=== PATIENT | female | born 1935 | race Caucasian/White ===

== ENCOUNTER 2023-10-26 02:22 | Inpatient (IN) | payer MEDICARE, BC, SELFPAY ==
[2023-10-25 21:33] VITALS: BP 98/58; BMI 18.9
[2023-10-25 21:38] VITALS: BP 98/58
[2023-10-25 22:09] LABS: % Basophils 0.3 % (0-2); % Immature Granulocytes 2.2 % (0-0.5); % Lymphocytes 6.9 % (20.5-51.1); % Monocytes 3.3 % (1.7-9.3); % Neutrophils 87.3 % (42.2-75.2); Absolute Basophils 0.1 10^3/uL (0-0.2); Absolute Immature Granulocytes 0.5 10^3/uL (0-0.05); Absolute Lymphocytes 1.4 10^3/uL (1.2-3.4); Absolute Monocytes 0.7 10^3/uL (0.1-0.6); Hematocrit 31.9 % (37.0-47.0); Hemoglobin 11.1 g/dL (12.0-16.0); Mean Corp Hgb Conc. 34.8 g/dL (33.0-37.0); Mean Corpuscular Hgb 35.1 pg (27.0-31.0); Mean Corpuscular Volume 100.9 fL (81.0-99.0); Mean Platelet Volume 8.4 fL (7.4-10.4); Nucleated Red Blood Cells % 0.4 %; Platelet Count 343 10^3/uL (130-400); Red Blood Cell Count 3.16 10^6/uL (4.20-5.40); Red Cell Dist. Width 16.7 % (11.5-14.5); White Blood Cell Count 20.7 10^3/uL (4.8-10.8)
[2023-10-25 22:11] LABS: Urine Albumin Trace (Neg - Trace); Urine Bilirubin Negative (Negative); Urine Character Slightly Cloudy (Clear); Urine Color Yellow; Urine Glucose Negative (Negative); Urine Ketone Negative (Negative); Urine Leukocyte 2+ (Negative); Urine Nitrite Negative (Negative); Urine Occult Blood Negative (Negative); Urine Specific Gravity 1.015 (<1.030); Urine Urobilinogen Negative (Neg - 1+)
[2023-10-25 22:22] LABS: ALT (SGPT) 22 U/L (0-35); AST (SGOT) 20 U/L (14-36); Albumin 3.1 g/dl (3.5-5.0); Alkaline Phosphatase 85 U/L (38-126); Blood Urea Nitrogen 33 mg/dl (7-17); Calcium 9.1 mg/dl (8.4-10.2); Carbon Dioxide 22 mmol/L (22-30); Chloride 103 mmol/L (98-107); Estimated Creatinine Clearance 35 ml/min; Glucose 118 mg/dl (70-99); Potassium 3.5 mmol/L (3.5-5.1); Sodium 135 mmol/L (135-145); Total Bilirubin 0.9 mg/dl (0.2-1.3); Total Protein 5.5 g/dl (6.3-8.2); eGFR > 60.00
[2023-10-25 22:24] LABS: Urine Bacteria Few (Negative); Urine Red Blood Cell 0-2 /HPF (0-2); Urine White Cell >100 /HPF (0-5); Urine Yeast Many (Negative)
[2023-10-25 22:28] LABS: NT-proBNP 2030 pg/ml; Troponin I 0.016 ng/ml
[2023-10-25 23:00] VITALS: BP 81/52
[2023-10-25 23:05] LABS: COVID-19 Antigen Negative (Negative)
--- NOTE | 2023-10-25 23:12 | ED.GENMED ---
History of Present Illness
General
Chief Complaint: Change Level of Consciousness
Source: family
Exam Limitations: clinical condition
Time Seen by Provider: 10/25/23 21:45
Travel History
Have you had any contact with someone who has COVID-19?: Unable to Answer
Do you have any symptoms of coronavirus? Fever > 100 degrees, chills, cough, shortness of breath, sore throat, loss of taste or smell, muscle aches, or headache?: Unable to Answer
History of Present Illness
History of Present Illness:
87-year-old female change in mental status probably started in the last 24 hours. Patient's daughter was there at 4 PM and noticed a significant change essentially unresponsive. Was brought to the ER this evening for same. Patient was doing well
yesterday. Recent discharge from [facility] for sepsis. Cause unknown per the family
Past History
Past History
ED Past Medical History: Arrthythmia, HTN, Hypothyroidism, Other (Sepsis), Other (Dementia) and Other (Chronic kidney disease)
Phy Exam
Physical Exam
Physical Exam:
GENERAL: Lethargic, eyes closed, only responds to painful stimuli and occasionally to voice.
EYE: Orbits normal.
NECK: Supple
ENT: Mucous membranes dry
CARDIAC: Regular rate and rhythm without any obvious murmurs. Good pulses to the left foot
LUNGS: Clear breath sounds,normal
ABDOMEN: Soft, some mid abdominal tenderness. No rebound or guarding no mass or hernia
NEUROLOGICAL: Lethargic. Grossly nonfocal.
SKIN: Warm and dry, coolness to the left foot with some color changes to the distal medial left foot. Eschar to the left first toe
MUSCULOSKELETAL: Bilateral edema. Dressings to both lower extremities
PSYCH: Lethargic no eye contact
Course
Orders/Labs/Results
Orders:
Orders
10/25/23 21:41
Electrocardiogram (*1) Urgent
Reason for Study: Fatigue / Weakness
10/25/23 21:42
EKG- Treatment ONCE
10/25/23 21:44
Straight cath- Treatment ONCE
Straight Cath As Directed
Frequency: One time now
10/25/23 21:52
Portable Chest Xray [CR Chest Portable - 1 View] Urgent
Comment:
Reason For Exam: change in LOC
Reason Study Needs to be Portable: Patient Unstable
10/25/23 21:57
IV Insert/Care/Rem.- Treatment PRN
10/25/23 21:59
CMP [Comprehensive Metabolic Panel] Urgent
Complete Blood Count/With Diff Urgent
Pro-BNP [NT-proBNP] Urgent
Troponin I Urgent
Urinalysis Reflex To Culture Urgent
Date Specimen was Collected: 10/25/23
Time Specimen was Collected: 21:43
Urine Microscopic Reflex Cult Urgent
Urine Culture Urgent
NATALIE Source: U
Specimen Description:
Date Specimen was Collected: 10/25/23
Time Specimen was Collected: 21:43
10/25/23 22:41
COVID-19 Antigen Urgent
Source: Nasal Swab
Lactic Acid Q4H
Comment: CANCEL 2nd LACTIC ACID IF 1st LACTIC ACID IS LESS THAN 2
Blood Culture Q30M
NATALIE Source: Blood/Venous
Specimen Description:
Influenza A+B Rapid Molecular Urgent
NATALIE Source: Nasal Swab
Specimen Description:
0.9% Sodium Chloride 1000 ml [Nss] 1,000 ml IV BOLUS
Aztreonam [Azactam] 2,000 mg IV NOW STA
10/25/23 23:11
Sterile Water [Sterile Water For Injection] 10 ml .ROUTE .ST-MED ONE
10/25/23 23:25
Blood Culture Routine
NATALIE Source: B
Specimen Description:
10/26/23 00:10
CT Head W/o Iv Contrast Urgent
Reason For Exam: change in LOC
10/26/23 00:20
CT Abd/pel Without Iv Or Oral Urgent
Reason For Exam: abd pain. sepsis
10/26/23 00:26
0.9% Sodium Chloride 1000 ml [Nss] 1,000 ml IV BOLUS
10/26/23 00:59
MetroNIDAZOLE 500 MG/100 ML [Flagyl 500 mg] 100 ml IV NOW
10/26/23 02:00
Lactic Acid Q4H
Comment: CANCEL 2nd LACTIC ACID IF 1st LACTIC ACID IS LESS THAN 2
Abnormal Lab Results
10/25/23
21:59
WBC 20.7 H 10^3/uL
(4.8-10.8)
RBC 3.16 L 10^6/uL
(4.20-5.40)
Hgb 11.1 L g/dL
(12.0-16.0)
Hct 31.9 L %
(37.0-47.0)
MCV 100.9 H fL
(81.0-99.0)
MCH 35.1 H pg
(27.0-31.0)
RDW 16.7 H %
(11.5-14.5)
Abs Immat Gran (auto) 0.5 H 10^3/uL
(0-0.05)
Absolute Neuts (auto) 18.0 H 10^3/uL
(1.4-6.5)
Absolute Monos (auto) 0.7 H 10^3/uL
(0.1-0.6)
Immature Gran % 2.2 H %
(0-0.5)
Neutrophils % 87.3 H %
(42.2-75.2)
Lymphocytes % 6.9 L %
(20.5-51.1)
BUN 33 H mg/dl
(7-17)
Glucose 118 H mg/dl
(70-99)
Total Protein 5.5 L g/dl
(6.3-8.2)
Albumin 3.1 L g/dl
(3.5-5.0)
Leukocyte Esterase Rfl 2+ A
(Negative)
Urine WBC (Reflex) >100 A /HPF
(0-5)
Urine Bacteria (Reflex) Few A
(Negative)
Urine Yeast Many A
(Negative)
10/25/23 21:59
10/25/23 21:59
Vital Signs
Initial and Last Documented VS:
Initial Vital Signs
Temp Pulse Resp BP Pulse Ox
100.4 F H 98 18 98/58 97
10/25/23 21:33 10/25/23 21:33 10/25/23 21:33 10/25/23 21:33 10/25/23 21:33
Last Documented Vital Signs
Temp Pulse Resp BP Pulse Ox
100.4 F H 71 16 117/57 95
10/25/23 21:33 10/26/23 01:00 10/26/23 01:00 10/26/23 01:00 10/26/23 01:00
MDM/Problems Addressed
Differential Diagnosis Includes:
Significant change in mental status over 24 to 36 hours. Likely septic. Patient also may have an ischemic left foot but this does not appear new. She does have great dorsalis pedis pulse on the side however. 20,000 white count positive urine.
Antibiotics ordered. Awaiting CT scan. Try to get records from [facility] family updated multiple times. Patient is DNR/DNI.
*Radiology
Radiology exam reviewed: radiology read reviewed (No acute findings on head CT calcified meningioma. Stercoral colitis. 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
*EKG
Interpreted by ED Provider?: Yes
Interpretation: abnormal
Comparison EKG: no comparison EKG present
Heart Rate: 88
Rate: normal
Rhythm: sinus
[place]: normal axis
Interval: normal interval
QRS Pattern: left vent hypertrophy
Ischemia: non-specific ST changes
*[facility] Manager Interpretation
Rate: normal
Interpretation: normal
Heart Rate: 90
Rhythm: sinus
*Critical Care Note
Total Time (30-74mins, 75-104mins- exclusive of procedures): Not Applicable
Update Note
Update Note:
Improve mental status with fluids. Stercoral colitis/UTI. Attempting to still get records from [facility].
ED Attending Note
-
Portions of this chart may have been created with voice recognition software.� Occasional wrong word or��sound alike� substitutions may have occurred due to the inherent limitations of voice recognition software.
Discharge Plan
Departure
Patient Disposition: Admit
Date of Disposition: 10/26/23
Time of Disposition: 01:02
Presentation/result/management discussed w/ accepting MD/DO: Hospitalist
Discharge Problem:
Early sepsis, Stercoral colitis, UTI
Prescriptions:
No Action
hydroxyurea 500 mg Capsule
500 mg PO MOWEFR
lisinopril 20 mg Tablet
20 mg PO DAILY
famotidine 40 mg Tablet
80 mg PO DAILY
diltiazem HCl 240 mg Capsule,Extended Release 24 Hr
240 mg PO DAILY
hydralazine 25 mg Tablet
25 mg PO TID
acetaminophen 650 mg Tablet
650 mg PO Q6H PRN (Reason: general discomfort)
bisacodyl 10 mg Suppository
10 mg [place] DAILY PRN (Reason: constipation)
white petrolatum Ointment
1 applic TOPICAL Q6HPRN PRN (Reason: dry skin)
furosemide [Lasix] 20 mg Tablet
20 mg PO DAILY
gabapentin 100 mg Capsule
100 mg PO BID
ergocalciferol (vitamin D2) 1,250 mcg (50,000 unit) Capsule
1,250 mcg PO WE
budesonide 3 mg Capsule,Delayed,Extend.Release
3 mg PO TID
Eliquis 2.5 mg Tablet
2.5 mg PO BID
carboxymethylcellulose sodium 1 % Drops
1 drp BOTH EYES Q6HPRN PRN (Reason: dry eyes)
Referrals:
Chuck Dasilva MD [Family Provider] -
Interventions
Interventions:
*General Assessment Last Done: 10/25/23 21:33
*Neglect/Abuse Screening Last Done: 10/25/23 21:48
ED- Fall Risk Assessment Last Done: 10/25/23 21:33
*ED COVID-19 Vaccine History Last Done: 10/25/23 21:33
ED- Cardiac Assessment Last Done: 10/25/23 23:22
ED- Neurological Assessment Last Done: 10/25/23 23:22
ED-Psychological Assessment Last Done: 10/25/23 23:22
ED- Pulmonary Assessment Last Done: 10/25/23 23:22
Discharge Date and Time
Print Language: INDIAN
[2023-10-25] MEDS: NSS 1000 IV (23:14)
[2023-10-25] MEDS: AZACTAM 2000 MG IV (23:15)
[2023-10-25 23:26] VITALS: BP 125/60
[2023-10-25 23:40] VITALS: BP 129/69
[2023-10-26] VITALS (15 sets, daily range): BP systolic 92–147; BP diastolic 48–88; PULSE 70–71; O2SAT 96–100; BMI 18.9
[2023-10-26] MEDS: NSS 1000 IV (00:37)
[2023-10-26] MEDS: FLAGYL 500 MG 100 IV ×3 (01:11→17:17)
--- NOTE | 2023-10-26 02:14 | HPS.HSE ---
Family Physician
-
Family Physician: Chuck Dasilva
Chief Complaint
-
Altered Mental Status
History of Present Illness
Patient is an 87y F with PMH significant for A-Fib, lymphocytic colitis and hypertension who presents to ED from local SNF for evaluation of mental status change. Patient was reportedly found to be poorly responsive at the [facility] this evening. Per
report, she had been 'normal' yesterday. In the ED, patient is sleeping and responds minimally. She does nod her head to some questions and follows simple commands, but does not open her eyes or engage in spoken conversation. Additional history /
ROS from the patient is difficult.
Patient was recently hospitalized at [facility] for sepsis. Her symptoms sound as if they were quite similar at that time. Her final diagnosis was sepsis with no apparent origin / cause.
Medical History
Past Medical History
Past Medical History: Reports Other
Additional Past Medical History:
Paroxysmal Atrial Fibrillation
Hypertension
CHF - Unknown Type
Lymphocytic Colitis
GERD
Hypothyroidism
Peripheral Neuropathy
Past Surgical History: Reports Other
Additional Past Surgical History:
Unknown
Social History
Unable to obtain full social history at this time due to: Patient Non-verbal
Family History
Family History: Unable to Obtain
Allergies / Home Medications
Allergies reflects when Allergies were last updated in [facility].
Home Medications with original date entered in [facility]
Allergy/Medication List:
Allergies
Allergy/AdvReac Type Severity Reaction Status Date / Time
Iodinated Contrast Media Allergy Unknown Verified 10/25/23 21:31
Penicillins Allergy Unknown Verified 10/25/23 21:31
Home Medications
acetaminophen 650 mg tablet 650 mg PO Q6H PRN general discomfort 10/25/23
apixaban 2.5 mg tablet (Eliquis) 2.5 mg PO BID 10/25/23
bisacodyl 10 mg rectal suppository 10 mg [place] DAILY PRN constipation 10/25/23
budesonide 3 mg capsule,delayed,extended release 3 mg PO TID 10/25/23
carboxymethylcellulose sodium 1 % eye drops 1 drp BOTH EYES Q6HPRN PRN dry eyes 10/25/23
diltiazem HCl 240 mg capsule,24 hr,extended release 240 mg PO DAILY 10/25/23
ergocalciferol (vitamin D2) 1,250 mcg (50,000 unit) capsule 1,250 mcg PO WE 10/25/23
famotidine 40 mg tablet 80 mg PO DAILY 10/25/23
furosemide 20 mg tablet (Lasix) 20 mg PO DAILY 10/25/23
gabapentin 100 mg capsule 100 mg PO BID 10/25/23
hydralazine 25 mg tablet 25 mg PO TID 10/25/23
hydroxyurea 500 mg capsule 500 mg PO MOWEFR 10/25/23
lisinopril 20 mg tablet 20 mg PO DAILY 10/25/23
white petrolatum 1 applic topical Q6HPRN PRN dry skin 10/25/23
Review of Systems
-
Unable to obtain full review of systems at this time due to: Patient Non-verbal
Physical Exam
Vital Signs
Vital Signs
Temp Pulse Resp BP Pulse Ox
100.4 F H 79 19 113/82 94
10/25/23 21:33 10/26/23 02:00 10/26/23 02:00 10/26/23 02:00 10/26/23 02:00
Physical Exam
General: Other (87y F does not appear in acute distress. Somewhat pale appearing.)
HEENT: Moist mucous membranes
Respiratory: Other (Decreased at bases - otherwise clear.)
Cardiac: S1/S2 and Regular Rhythm; No Murmur
GI: Soft, Non Distended, Normal Bowel Sounds and Other (Mild, diffuse tenderness. Rectal exam performed with soft, brown stool. No large amount of stool could be removed / disimpacted.)
Musculoskeletal: Other (2-3+ edema b/l LEs with scattered blistered / bruised lesions. L 1st toe with necrotic appearing ulcer at distal aspect. No bleeding / discharge.)
Neuro: Other (Lethargic / non-verbal - but does nod to questions / follows some commands.)
Hematologic/Lymphatic: Other (LE pulses are symmetric and excellent.)
Laboratory Results
-
10/25/23:
10/25/23:
Laboratory Results
Lactic Acid 2.0 mmol/L (0.7-2.0) 10/25/23 22:41
Total Bilirubin 0.9 mg/dl (0.2-1.3) 10/25/23:
AST 20 U/L (14-36) 10/25/23:
ALT 22 U/L (0-35) 10/25/23:
Alkaline Phosphatase 85 U/L (38-126) 10/25/23:
Troponin I 0.016 ng/ml 10/25/23:59
Impression/Plan
-
A/P: Patient is an 87y F with PMH significant for A-Fib, HTN. CHF and lymphocytic colitis who presents to ED for evaluation of mental status change / new lethargy.
Stercoral Colitis
Sepsis secondary to the above
Acute TME secondary to the above
- Admit for further evaluation and treatment.
- Patient with apparent abdominal tenderness. CT shows large stool burden in rectosigmoid colon with associated wall changes / stercoral colitis.
- WBC = 20.7, temp = 100.4.
- Evidence of life threatening organ dysfunction in the form of acute TME.
- IV abx with ceftriaxone and metronidazole for now.
- Manual disimpaction unsuccessful in the ED - copious, soft stool appreciated.
- Bowel regimen, enemas, etc.
- Follow for clinical response.
- Colorectal evaluation for additional recommendations.
- Follow for coincident improvement in mentation / TME with treatment of colitis.
Abnormal UA
- Cannot elicit whether or not patient is having urinary symptoms.
- Colitis findings likely explain her sepsis, etc.
- Abx as noted above. Follow-up urine culture data.
Paroxysmal Atrial Fibrillation
- Currently in sinus rhythm.
- Hold diltiazem acutely given lower BP in the ED.
- Hold Eliquis acutely.
- Monitor on telemetry.
Chronic HF - Unknown Type
- Patient maintained on Lasix regimen - ? for LE edema.
- Hold diuretic acutely.
- Follow daily weights, I/Os, etc.
- Dose Lasix PRN.
Lymphocytic Colitis
- Listed diagnosis on SNF record.
- On budesonide and hydroxyurea (?) for this.
- Hold both acutely and consider restart after acute colitis / constipation issues resolved.
L 1st Toe Wound
- Necrotic appearing wound to the L great toe.
- Has been receiving wound care per family - not a new finding / issue.
- Pulses are excellent in both feet - likely small vessel disease.
- Skin changes / LE edema seems suggestive of chronic illness.
- Wound Care evaluation during stay here.
- Obtain [facility] records for review.
Benign Hypertension
- BP on the lower side in the ED.
- Will hold BP medications acutely and resume one at a time as BP allows.
DVT Prophylaxis: SCDs
Code Status: DNR
[2023-10-26 03:29] LABS: Lactic Acid 1.2 mmol/L (0.7-2.0)
[2023-10-26] MEDS: STERILE WATER FOR INJECTION 10 ML IV (04:26)
[2023-10-26] MEDS: ROCEPHIN 1000 MG IV (04:26)
--- NOTE | 2023-10-26 04:43 | PTCARENOTE ---
PT arrived to unit and was transferred from stretcher to bed with +2 assist. Pt is a complete. Pt is unable to answer any of the admission assessment questions. Will need to speak with family. However, physical assessment was conducted at time of
arrival. Oriented pt to room and call louie within reach.
[2023-10-26 05:26] LABS: Hematocrit 26.6 % (37.0-47.0); Mean Corp Hgb Conc. 33.8 g/dL (33.0-37.0); Mean Corpuscular Hgb 35.3 pg (27.0-31.0); Mean Corpuscular Volume 104.3 fL (81.0-99.0); Mean Platelet Volume 8.6 fL (7.4-10.4); Platelet Count 286 10^3/uL (130-400); Red Blood Cell Count 2.55 10^6/uL (4.20-5.40); Red Cell Dist. Width 16.8 % (11.5-14.5)
[2023-10-26 05:52] LABS: Blood Urea Nitrogen 32 mg/dl (7-17); Calcium 8.2 mg/dl (8.4-10.2); Carbon Dioxide 19 mmol/L (22-30); Chloride 109 mmol/L (98-107); Estimated Creatinine Clearance 40 ml/min; Glucose 125 mg/dl (70-99); Potassium 3.3 mmol/L (3.5-5.1); Sodium 137 mmol/L (135-145); eGFR > 60.00
[2023-10-26 06:20] LABS: TSH Reflex To Free T4 4.21 uIU/ml (0.47-4.68)
[2023-10-26] MEDS: PROTONIX IV 40 MG IV (10:09)
[2023-10-26] MEDS: NSS (PRESERVATIVE FREE) 10 ML IV (10:09)
--- NOTE | 2023-10-26 12:35 | WOUNDNOTE ---
LEF
LEFT TOE WOUND
--- NOTE | 2023-10-26 12:35 | WOUNDNOTE ---
LEFT LATERAL LEG
--- NOTE | 2023-10-26 12:37 | WOUNDNOTE ---
LEFT POSTERIOR KNEE
--- NOTE | 2023-10-26 12:40 | WOUNDNOTE ---
LEFT LATERAL KNEE
--- NOTE | 2023-10-26 12:41 | WOUNDNOTE ---
DORSAL ASPECT OF BILATERAL FEET
--- NOTE | 2023-10-26 12:45 | WOUNDNOTE ---
[facility] RN note: Patient admitted with altered mental status
See H&P for complete history.
PMH: [place] resident, HTN, lymphocytic colitis
Wound Location and type/assessment: Patient admitted with: Left great toe arterial appearing wound covered with eschar, multiple LE skin tears, fungal appearing rash of buttocks and groin, UE scattered ecchymosis, stage 1 of sacrum (appears to be a
healed stage 2 or 3), stage 1 bilateral heels. Patient slept during assessment and appeared to tolerate well. Spoke to patient's daughter who stated patient has not ambulated since July and intake has been poor. Per daughter patient sees
bird trapper at who has been treating left great toe wound. The eschar is intact, no draining or odor noted. Patient has +3 edema and audible pulses. Left dorsal foot and great toe appear ecchymotic vs ischemic. Daughter said patient was wearing
compression but NH applying incorrectly so bird trapper d/c. Patient is currently NPO and has a low BMI at 18.
Pressure redistribution devices in place: Static air overlay ordered, patient currently on Versa Care Accumax. Heels off-loaded with pillows under calves.
Plan: TT hospitalist and will defer for compression. Wound care provided as ordered. Daughter updated on care plan at bedside. Patient positioned in semi-side lying position. RN Pauline aware of order for static air overlay. Will confirm orders with
hospitalist and update nurse.
Updated care plan and will follow as needed.
Note to case management of equipment requested for discharge: Patient should have an air mattress at facility due to poor mobility and po intake.
Recommend follow up at wound care center upon discharge.
[2023-10-26] MEDS: HYDROPHOR 1 APPLIC TOPICAL (13:11)
--- NOTE | 2023-10-26 13:54 | CON.CRS ---
Consultation
-
Date/Time Consultation Requested: 10/26/2023, 03:29
Date/Time Consultation Performed: 10/26/2023, 08:45
Requesting Provider: Sebastián Joaquin DO
Performing Provider: Pepe Simons MD
Reason for Consultation: large fecal burden/stercoral colitis
Medical History
-
Chief Complaint: Change in mental status
History of Present Illness:
87-year-old female with a significant past medical history of atrial fibrillation on Eliquis and lymphocytic colitis from [facility] presents via EMS due to change in mental status. Per records the patient was unresponsive at
the detention. Per records, she was minimally responsive in the ER. She was apparently recently hospitalized at [facility] due to sepsis of unknown origin. CT of the head was negative for acute abnormality. CT of the abdomen and
pelvis showed severe fecal retention throughout the sigmoid colon. Rectum measures up to 7.7 cm in diameter which is consistent with severe constipation and/or fecal impaction. Inflammatory change at the rectosigmoid junction suggestive of
stercoral colitis. There is also a cystic lesion in the tail the pancreas. We have been consulted for further surgical management.
Past Medical History
Past Medical History: Arrhythmias (Atrial fibrillation), CHF, GERD, HTN, Hypothyroidism and Other (Lymphocytic colitis, Peripheral neuropathy)
Past Surgical History: Other (Unknown)
Social History
Tobacco: Other ( unable to obtain due to nonverbal)
Family History
Family History: Unable to Obtain
Allergies / Home Medications
Allergy/AdvReac Type Severity Reaction Status Date / Time
Iodinated Contrast Media Allergy Unknown Verified 10/25/23 21:31
Penicillins Allergy Unknown Verified 10/25/23 21:31
�Medication �Instructions �Recorded �Confirmed �Type
acetaminophen 650 mg tablet 650 mg PO Q6H PRN general 10/25/23 10/25/23 History
discomfort
apixaban 2.5 mg tablet (Eliquis) 2.5 mg PO BID Blood Clot 10/25/23 10/25/23 History
Prevention/Tx
bisacodyl 10 mg rectal suppository 10 mg [place] DAILY PRN constipation 10/25/23 10/25/23 History
budesonide 3 mg 3 mg PO TID colitis 10/25/23 10/25/23 History
capsule,delayed,extended release
carboxymethylcellulose sodium 1 % 1 drp BOTH EYES Q6HPRN PRN dry eyes 10/25/23 10/25/23 History
eye drops
diltiazem HCl 240 mg capsule,24 240 mg PO DAILY Blood Pressure 10/25/23 10/25/23 History
hr,extended release
ergocalciferol (vitamin D2) 1,250 1,250 mcg PO WE Supplement 10/25/23 10/25/23 History
mcg (50,000 unit) capsule
famotidine 40 mg tablet 80 mg PO DAILY Gastrointestinal 10/25/23 10/25/23 History
Issue
furosemide 20 mg tablet (Lasix) 20 mg PO DAILY Fluid 10/25/23 10/25/23 History
Retention/Swelling
gabapentin 100 mg capsule 100 mg PO BID peripheral 10/25/23 10/25/23 History
neuropathy/pain
hydralazine 25 mg tablet 25 mg PO TID Blood Pressure 10/25/23 10/25/23 History
hydroxyurea 500 mg capsule 500 mg PO MOWEFR 10/25/23 10/25/23 History
lisinopril 20 mg tablet 20 mg PO DAILY Blood Pressure 10/25/23 10/25/23 History
white petrolatum 1 applic topical Q6HPRN PRN dry 10/25/23 10/25/23 History
skin
Review of Systems
-
Unable to obtain full review of systems at this time due to: Patient Non Verbal
A 10 point review of systems was completed, and was negative except as per HPI.
Physical Exam
Vital Signs
Temp 97.3 F 10/26/23 11:05
Pulse 63 10/26/23 11:05
Resp Rate 14 10/26/23 11:05
Blood pressure 140/66 10/26/23 11:05
SaO2 96 10/26/23 11:05
10/25/23 10/26/23 10/27/23
06:59 06:59 06:59
Actual Weight 50.037 kg
Body Mass Index (BMI) 18.9
Lab Results / Allergies
10/26/23 04:30
10/26/23 04:30
WBC 18.0 10^3/uL (4.8-10.8) H 10/26/23 04:30
Hgb 9.0 g/dL (12.0-16.0) L 10/26/23 04:30
Hct 26.6 % (37.0-47.0) L 10/26/23 04:30
Plt Count 286 10^3/uL (130-400) 10/26/23 04:30
Abs Immat Gran (auto) 0.5 10^3/uL (0-0.05) H 10/25/23 21:59
Neutrophils % 87.3 % (42.2-75.2) H 10/25/23 21:59
Allergy/AdvReac Type Severity Reaction Status Date / Time
Iodinated Contrast Media Allergy Unknown Verified 10/25/23 21:31
Penicillins Allergy Unknown Verified 10/25/23 21:31
Physical Exam
General: Well Developed, Well Nourished and No Apparent Distress
GI: Soft, Non Tender and Distended (Mild)
Rectal: Other (Soft stool noted in rectum, no bleeding, no masses, no stool ball)
Data Reviewed
-
CT Scan: Image Personally Visualized and interpreted and Report Reviewed by me
Labs: Labs Reviewed by me and Discussed with Physician
Old Records: Reviewed
Assessment / Plan
-
Assessment: 87-year-old female from [facility] within the past medical history of atrial fibrillation on Eliquis, found to have a large fecal burden and stercoral colitis on CT
Plan:
The patient's abdomen is soft and only mildly distended. On rectal exam she has a large amount of soft stool in her rectum. There is no hard stool or mass noted. Recommend an aggressive bowel regimen. She is currently on MiraLAX and Colace.
Will give magnesium citrate x 1 now and 1 tapwater enema. She will need eventual outpatient testing for the pancreatic cyst noted on the CT scan. Also recommend goals of care discussion with family. No need for urgent surgery at this time.
--- NOTE | 2023-10-26 14:19 | CM ---
Patient seen at bedside with daughter and granddaughters. Patient with eyes closed. Patient daughter/poa indicated that she would bring in her POA form and provide it to the daughter. Patient daughter stated that patient has been at [facility]
personal care and then moved to [facility] where she was treated for sepsis. Patient daughter indicated that the patient felt she had been poorly cared for at [place] so they requested a transfer to [place]. Per Patient daughter
patient is to be LTC there. Patient was transferred to SNF last week. Patient PCP is Dr. Constantino Dasilva. CM called to admissions at [facility] and per liaison patient is LTC at [place] and has a bed hold there. Patient was alert x1/2 and walked
with walker and assist of 1 per liaison. Patient daughter plan is to return to SNF when medically stable. CM at daughter request asked for med list from SNF to be faxed to CM to provide to physician. CM will continue to follow for discharge planning
needs.
Plan; SNF; [facility]
--- NOTE | 2023-10-26 14:42 | W.PN.HOSP.TC ---
Today's Communication/Plan
-
await cultures
PT/OT/SPEECH
consult vascular
apprec wound care
Assessment / Plan
Assessment / Plan
pt is an 87 year old female
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 CT shows large stool burden in rectosigmoid colon with associated wall changes/stercoral colitis--cont IV rocephin and
flagyl--apprec CRS--enemas as directed
cyanotic left forefoot with great toe necrotic wound (POA)--pulses present by doppler--consult vascular
Abnormal UA--likely infected--await urine culture--rocephin covers for now
Paroxysmal Atrial Fibrillation - Currently in sinus rhythm- Hold diltiazem acutely given lower BP in the ED--Hold Eliquis acutely--Monitor on telemetry.
Chronic HF - Unknown Type--Patient maintained on Lasix regimen - ? for LE edema--Hold diuretic acutely--Follow daily weights, I/Os, etc--Dose Lasix PRN.
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
Essential Hypertension- BP on the lower side in the ED- Will hold BP medications acutely and resume one at a time as BP allows.
DVT Prophylaxis: SCDs
Code Status: DNR
Anticipated Discharge: > 48 hours
Subjective/Interval History
-
Date of Service: October 26, 2023
pt without c/o
Objective Data
-
Labs:
Laboratory Results
10/26/23
04:30
WBC 18.0 H
Hgb 9.0 L
Hct 26.6 L
Plt Count 286
Sodium 137
Potassium 3.3 L
Chloride 109 H
Carbon Dioxide 19 L
BUN 32 H
Creatinine 0.8
Glucose 125 H
Calcium 8.2 L
Vital Signs:
max temp for 24 hours
10/25/23
21:33
Temp 100.4 F H
Vital Signs
Temp Pulse Resp BP Pulse Ox
97.3 F 63 14 140/66 96
10/26/23 11:05 10/26/23 11:05 10/26/23 11:05 10/26/23 11:05 10/26/23 11:05
Review of Systems
-
All other systems: Reviewed and negative
Physical Exam
-
General: Appears Chronically Ill
HEENT: Normocephalic and Atraumatic
Respiratory: Clear to Auscultation; Negative Wheezes or Rhonchi
Cardiac: Regular Rhythm and S1/S2; Negative Murmur
GI: Soft, Nontender, Nondistended and Normal Bowel Sounds
Musculoskeletal: Cyanosis (left forefoot to toes); Negative No Edema (bilateral legs and feet)
Skin: Warm
Neuro: Awake
[2023-10-26] MEDS: KCL 270 MEQ IV (15:04)
--- NOTE | 2023-10-26 15:15 | CON.VAS ---
Addendum entered and electronically signed by Aren Elizabeth MD 10/27/23 16:45:
Seen and examined. Agree with KURT Cha findings below. Patient with her daughter and granddaughter at the bedside. They filled in some history for me. History though essentially as noted below. Several months of left first toe dry gangrene. Has
been managed at [facility] wound care clinic. I asked to evaluate regarding this but also some discoloration of the left foot. Patient is without any pain in her feet. Her main complaint of pain is in her back. Denies any lower extremity
revascularization procedures.
On exam/she is awake and alert. Breathing is unlabored. Abdomen is soft. Groins are flat bilaterally. 2+ femoral pulses palpable bilaterally. 2+ popliteal pulses palpable bilaterally. 2+ DP pulses palpable bilaterally. Nonpalpable PTs
bilaterally. Feet are warm. Left foot with generalized slight bluish/congested appearance especially in the toes. First toe distal tip with dry gangrene.
Noninvasive studies reviewed. No evidence of significant stenosis from common femoral through popliteal arteries bilaterally. Monophasic distal waveforms suggestive of possible infrapopliteal disease. Left-sided TBI was not obtained.
Plan/ May have some degree of infrapopliteal disease. Has palpable pulses. Has chronic distal tip first toe gangrene. Discussed with patient and family generally would recommend in the setting angiography. Discussed there may or may not be
treatable lesions (could be small vessel disease as well). However given her age and risk factors and the chronicity of this problem, and the fact that she is not really ambulatory at all, would generally favor noninterventional management.
Patient's family is in full agreement with this as is the patient. They wish to see me in the office for follow-up. She will see us in the vascular office in 4 to 6 weeks for routine check.
Original Note:
Consultation
Consultation Request
Date/Time Consultation Performed: 10/26/2023 1530
Requesting Provider: Sarah Junior MD
Performing Provider: Dannielle Cha, KURT-C for Manjinder Colmenares III, MD
Reason for Consultation: Left hallux wound with discoloration
Medical History
-
Chief Complaint: Altered mental status
History of Present Illness:
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
today for altered mental status. Patient and daughter at bedside contributing to HPI. Patient cannot recall transfer from [facility]dc to hospital or events that precipitated ED visit. Currently she offers no complaints, and is oriented to person
and place. Had difficulty recalling her year and president. Her daughter at bedside does endorse history of at least 6+ months dry gangrene wound to left hallux tip, she follows with a wound care physician out [facility].
Additionally, patient's daughter notes that she has had ongoing bluish discoloration of dorsum of left foot also for at least 6 months and is currently improved in comparison to her usual baseline. Patient daughter also expressed that she has been
bedbound since roughly July when her insurance would no longer cover physical therapy. Denies rest pain.
Past Medical History
Past Medical History: Arrhythmias (Atrial fibrillation), CHF, GERD, HTN, Hypothyroidism and Other (Lymphocytic Colitis, Peripheral Neuropathy)
Past Surgical History: Other (Unknown)
Allergies / Home Medications
Allergy/AdvReac Type Severity Reaction Status Date / Time
Iodinated Contrast Media Allergy Unknown Verified 10/25/23 21:31
Penicillins Allergy Unknown Verified 10/25/23 21:31
�Medication �Instructions �Recorded �Confirmed �Type
acetaminophen 650 mg tablet 650 mg PO Q6H PRN general 10/25/23 10/25/23 History
discomfort
apixaban 2.5 mg tablet (Eliquis) 2.5 mg PO BID Blood Clot 10/25/23 10/25/23 History
Prevention/Tx
bisacodyl 10 mg rectal suppository 10 mg IA DAILY PRN constipation 10/25/23 10/25/23 History
budesonide 3 mg 3 mg PO TID colitis 10/25/23 10/25/23 History
capsule,delayed,extended release
carboxymethylcellulose sodium 1 % 1 drp BOTH EYES Q6HPRN PRN dry eyes 10/25/23 10/25/23 History
eye drops
diltiazem HCl 240 mg capsule,24 240 mg PO DAILY Blood Pressure 10/25/23 10/25/23 History
hr,extended release
ergocalciferol (vitamin D2) 1,250 1,250 mcg PO WE Supplement 10/25/23 10/25/23 History
mcg (50,000 unit) capsule
famotidine 40 mg tablet 80 mg PO DAILY Gastrointestinal 10/25/23 10/25/23 History
Issue
furosemide 20 mg tablet (Lasix) 20 mg PO DAILY Fluid 10/25/23 10/25/23 History
Retention/Swelling
gabapentin 100 mg capsule 100 mg PO BID peripheral 10/25/23 10/25/23 History
neuropathy/pain
hydralazine 25 mg tablet 25 mg PO TID Blood Pressure 10/25/23 10/25/23 History
hydroxyurea 500 mg capsule 500 mg PO MOWEFR 10/25/23 10/25/23 History
lisinopril 20 mg tablet 20 mg PO DAILY Blood Pressure 10/25/23 10/25/23 History
white petrolatum 1 applic topical Q6HPRN PRN dry 10/25/23 10/25/23 History
skin
Review of Systems
-
History Source: Patient
Constitutional: Reports No Symptoms
EENT: Reports No Symptoms
Respiratory: Reports No Symptoms
Cardiac: Reports No Symptoms
Abdomen/GI: Reports Abdominal Pain and Constipated
: Reports No Symptoms
Musculoskeletal: Reports Edema (Bilateral lower extremities with chronic edema)
Skin: Reports Other (Left hallux with dry gangrene tip of digit wound, chronic)
Neurological: Reports No Symptoms
Physical Exam
Vital Signs
Temp Pulse Resp BP Pulse Ox
97.3 F 63 14 140/66 96
10/26/23 11:05 10/26/23 11:05 10/26/23 11:05 10/26/23 11:05 10/26/23 11:05
Lab Results
10/26/23 04:30
10/26/23 04:30
Troponin I 0.016 ng/ml 10/25/23 21:59
[id number] Pept 2030 pg/ml 10/25/23 21:59
Physical Exam
General: No Apparent Distress and Comfortable
HEENT: Normocephalic, Anicteric and Atraumatic
Respiratory: Non Labored Respirations
Cardiac: Irregular Rhythm; Negative JVD
GI: Soft and Distended
Musculoskeletal: Edema (+2 pitting edema bilateral lower extremities)
Skin: Warm and Other (Left hallux digit tip with dry gangrene, discoloration over the dorsum of the left foot, cap refill less than 3 seconds, foot warm)
Neuro: Awake and Oriented (Oriented to self, year, and place. Required reorientation to recent events and hospitalization. )
Pulses: Bilateral Femoral: +2, Bilateral Dorsalis Pedis: +2 and Bilateral Posterior Tibial: Doppler (Nonpalpable)
Assessment / Plan
-
Assessment: 87-year-old female with chronic left hallux dry gangrene wound
Plan:
Recommend local wound care
Will obtain arterial ultrasound THADDEUS/TBI
Can wrap bilateral lower extremities from tips of toes to knee with Minesh wrap for management of bilateral lower extremity edema
Surgical plan per vascular surgery
I performed this shared service with the attending. I evaluated the patient [id number] and have entered clinical documentation as shown in the encounter note. I performed the following component(s): history and physical exam. Note that medical
decision making is not final until attested by vascular attending.
[2023-10-26] MEDS: CITROMA 300 ML PO (15:54)
--- NOTE | 2023-10-26 16:10 | PTOTSP ---
Video Swallow Study
Patient presents with signs concerning for mild oral/pharyngeal dysphagia. She is at an acute elevated risk for dysphagia given TME this admission. Chest x-ray 10/25/2023 with subsegmental atelectasis vs early PNA.
Recommend:
1. IDDSI Level 6 Soft and Bite Sized, IDDSI Level 0 Thin Liquids
2. Medications - as best tolerated
3. Strategies: upright to 90 degrees, PO only when awake/alert, limit distractions, single sips/bites, slow rate, alternate bites of solid with sips of liquid, ensure patient clears oral cavity, remain upright for 30 minutes after PO (given hx GERD)
4. Full supervision/assistance
5. Oral care 3x daily to reduce risk for aspiration complications
6. Dysphagia tx for patient/family education and to determine if objective assessment such as video swallow study warranted. Would hold at this time given AMS.
[2023-10-26] MEDS: DESENEX/MITRAZOL/ZEASORB 1 APPLIC TOPICAL (20:48)
[2023-10-27] MEDS: FLAGYL 500 MG 100 IV ×3 (01:28→17:51)
[2023-10-27 03:50] VITALS: BP 161/86
[2023-10-27] MEDS: STERILE WATER FOR INJECTION 10 ML IV (03:55)
[2023-10-27] MEDS: ROCEPHIN 1000 MG IV (03:56)
[2023-10-27 05:26] LABS: Hematocrit 24.3 % (37.0-47.0); Hemoglobin 8.2 g/dL (12.0-16.0); Mean Corp Hgb Conc. 33.7 g/dL (33.0-37.0); Mean Corpuscular Hgb 35.2 pg (27.0-31.0); Mean Corpuscular Volume 104.3 fL (81.0-99.0); Mean Platelet Volume 8.7 fL (7.4-10.4); Platelet Count 222 10^3/uL (130-400); Red Blood Cell Count 2.33 10^6/uL (4.20-5.40); Red Cell Dist. Width 16.9 % (11.5-14.5); White Blood Cell Count 11.7 10^3/uL (4.8-10.8)
[2023-10-27 05:49] LABS: Blood Urea Nitrogen 33 mg/dl (7-17); Calcium 8.4 mg/dl (8.4-10.2); Carbon Dioxide 21 mmol/L (22-30); Chloride 111 mmol/L (98-107); Estimated Creatinine Clearance 46 ml/min; Glucose 96 mg/dl (70-99); Magnesium 2.2 mg/dl (1.6-2.3); Potassium 3.3 mmol/L (3.5-5.1); Sodium 137 mmol/L (135-145); eGFR > 60.00
[2023-10-27 06:00] VITALS: BMI 19.3
[2023-10-27 08:00] VITALS: BP 111/89
[2023-10-27] MEDS: KCL 270 MEQ IV (08:32)
[2023-10-27] MEDS: NSS (PRESERVATIVE FREE) 10 ML IV (08:34)
[2023-10-27] MEDS: PROTONIX IV 40 MG IV (08:34)
[2023-10-27] MEDS: DESENEX/MITRAZOL/ZEASORB 1 APPLIC TOPICAL ×2 (08:36→21:26)
[2023-10-27] MEDS: HYDROPHOR 1 APPLIC TOPICAL (08:36)
--- NOTE | 2023-10-27 09:25 | W.PN.CRS1 ---
Today's Communication / Plan
-
Okay for clear liquids
Bowel regimen
Assessment/Plan
-
Assessment: 87-year-old female from [facility] within the past medical history of atrial fibrillation on Eliquis, found to have a large fecal burden and stercoral colitis on CT
Plan:
1. Okay to advance diet to clears with aspiration precautions.
2. No need for surgical intervention at this time.
3. Continue MiraLAX and Colace.
4. Enemas as needed.
5. Wound care per vascular.
Subjective Data
Subjective Data
Date of Service: October 27, 2023
Patient is more awake today. She says that she feels 'all right'. She has no pain. She denies nausea. Per nursing record she had a large bowel movements yesterday.
Objective Data
-
Vital Signs
Temp Pulse Resp BP Pulse Ox
97.5 F 75 21 111/89 98
10/27/23 08:00 10/27/23 08:00 10/27/23 08:00 10/27/23 08:00 10/27/23 08:00
Intake & Output
10/26/23 10/27/23 10/28/23
06:59 06:59 06:59
Intake Total 600 / 600
Balance 600 / 600
Intake:
Oral fluids 600 / 600
Other:
Number of approximated MODERATE 2
amounts of urine
How many times incontinent 1
SMALL amount urine
Lab Results
10/27/23 04:53
10/27/23 04:53
Physical Exam
-
General: No Acute Distress and AOx3
Abdomen: Soft, Non Distended and Non Tender
Skin: Warm and Dry
[2023-10-27 12:00] VITALS: BP 143/84
--- NOTE | 2023-10-27 12:42 | PN.CDI ---
CDI
- -
CDI:
Physician Documentation Request
Admit Date: 10/26/23 02:22
Dear Doctor Vernon,
Patient admitted with sepsis.
10/25 Nursing skin assessment by BRIA, 'Stage 1 sacral pressure injury , POA....Stage 1 bilateral heel pressure injuries, POA.'
Physician documentation of the type and location of wounds is required for compliant documentation. Based on the above clinical findings and your assessment, please provide the following in your progress note:
Type (etiology) of ulcer/wound:
- Pressure (decubitus) ulcer
- Other
- Unable to determine
For a pressure ulcer, please also include the stage* of the ulcer:
- Stage 1 - Skin intact, non-blanchable redness
- Stage 2 - Partial thickness loss of dermis, includes intact or open blister
- Stage 3 - Full thickness tissue not including bone, tendon or muscle
- Stage 4 - Full thickness tissue loss, including exposed bone, tendon or muscle
- Unstageable - Full thickness loss in which the base of the ulcer is covered by slough (yellow, kellogg, valencia, green or brown) and/or eschar (kellogg, brown or black) in the wound bed.
- Unable to determine
Use of terms such as suspected, likely, concern for, or probable (associated with a specific diagnosis that is being evaluated, monitored, or treated as if it exists) are acceptable and can be coded in the inpatient setting, when documented at the
time of discharge.
Thank you,
Kaylah BELLE,RN,CCDS
CDI Specialist
Available via Senath text
Please use your independent medical judgment in providing your response.
*Source: National Pressure Ulcer Advisory Panel (NPUAP)
--- NOTE | 2023-10-27 12:53 | PN.CDI ---
CDI
- -
CDI:
Physician Documentation Request
Admit Date: 10/26/23 02:22
Dear Doctor Vernon,
Patient admitted with sepsis.
Please review the following and provide your response in the progress notes.
Clinical Indicators: (admission)
Height: 5' 4'
Weight: 109 lb 12 oz
BMI: 18.9
Please provide an associated diagnosis related to the abnormal BMI, such as:
Underweight
Cachectic
Anorexia
BMI is not significant
Other
BMI < or = to 19
Underweight
Weight Loss
Cachectic
Anorexia
Use of terms such as suspected, likely, concern for, or probable (associated with a specific diagnosis that is being evaluated, monitored, or treated as if it exists) are acceptable and can be coded in the inpatient setting, when documented at the
time of discharge.
Thank you,
Kaylah BELLE,RN,CCDS
CDI Specialist
Available via tiger text
Please use your independent medical judgment in providing your response.
[2023-10-27 15:00] VITALS: BP 136/83
--- NOTE | 2023-10-27 15:20 | CM ---
Addendum entered by Shira Welch 10/27/23 16:51:
Physician saw patient at bedside and plan is for possible transfer back to [facility] tomorrow.
Original Note:
Patient seen at bedside, no family present. Patient sleeping. Will need to send update to Admissions at [facility]. Patient daughter to bring in her POA. CM will continue to follow for discharge planning needs.
Plan; returning to SNF; [facility]. LTC with bed hold.
--- NOTE | 2023-10-27 16:30 | PTCARENOTE ---
Assumed care of patient at 15:00 from Day Shift RN.
Assessment unchanged from prior assessment. Patient currently resting after eating meal. Has great appetite.
--- NOTE | 2023-10-27 17:33 | W.PN.HOSP.TC ---
Today's Communication/Plan
-
anticipate d/c tomorrow
Assessment / Plan
Assessment / Plan
pt is an 87 year old female
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
cyanotic left forefoot with great toe necrotic wound (POA)--pulses present by doppler--apprec vascular--no plans for intervention
Abnormal UA--likely infected--urine culture with yeast--can consider stopping rocephin
Paroxysmal Atrial Fibrillation - Currently in sinus rhythm- restart diltiazem and Eliquis acutely--Monitor on telemetry.
Chronic HF - Unknown Type--Patient maintained on Lasix regimen - ? for LE edema--Hold diuretic acutely--Follow daily weights, I/Os, etc--Dose Lasix PRN.
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
Essential Hypertension- BP on the lower side in the ED- Will hold BP medications acutely and resume one at a time as BP allows.
wound (POA) --Stage 1 sacral pressure injury and Stage 1 bilateral heel pressure injuries
underweight BMI
DVT Prophylaxis: SCDs
Code Status: DNR
Anticipated Discharge: Within 24 hours
Subjective/Interval History
-
Date of Service: October 27, 2023
pt awake, feisty--getting ready for dinner
Objective Data
-
Labs:
Laboratory Results
10/27/23
04:53
Sodium 137
Potassium 3.3 L
Chloride 111 H
Carbon Dioxide 21 L
BUN 33 H
Creatinine 0.7
Glucose 96
Calcium 8.4
Vital Signs:
max temp for 24 hours
10/26/23
15:36
Temp 97.7 F
Vital Signs
Temp Pulse Resp BP Pulse Ox
98.4 F 96 18 136/83 98
10/27/23 15:00 10/27/23 15:00 10/27/23 15:00 10/27/23 15:00 10/27/23 15:00
I&O
10/26/23 10/27/23 10/28/23
06:59 06:59 06:59
Intake Total 600 / 600
Balance 600 / 600
Review of Systems
-
All other systems: Reviewed and negative
Physical Exam
-
General: Well Developed, Well Nourished and No Apparent Distress
HEENT: Normocephalic and Atraumatic
Respiratory: Clear to Auscultation; Negative Wheezes, Rhonchi or Crackles
Cardiac: Regular Rhythm and S1/S2; Negative Murmur
GI: Soft, Nontender, Nondistended and Normal Bowel Sounds
Musculoskeletal: No Clubbing, No Cyanosis and Cyanosis (left forefoot); Negative No Edema (2+ LE edema)
Skin: Warm
Neuro: Awake
Psych: Calm
[2023-10-27 20:07] VITALS: BP 168/89
[2023-10-27 23:25] VITALS: BP 168/91
[2023-10-28] VITALS (8 sets, daily range): BP systolic 125–197; BP diastolic 80–107
[2023-10-28] MEDS: FLUSH (NSS) 2 FLUSH IV (02:54)
[2023-10-28] MEDS: FLAGYL 500 MG 100 IV ×3 (02:54→17:06)
[2023-10-28] MEDS: ROCEPHIN 1000 MG IV (04:29)
[2023-10-28] MEDS: STERILE WATER FOR INJECTION 10 ML IV (04:29)
[2023-10-28 05:02] LABS: Hematocrit 25.2 % (37.0-47.0); Hemoglobin 8.6 g/dL (12.0-16.0); Mean Corp Hgb Conc. 34.1 g/dL (33.0-37.0); Mean Corpuscular Hgb 35.4 pg (27.0-31.0); Mean Corpuscular Volume 103.7 fL (81.0-99.0); Mean Platelet Volume 8.7 fL (7.4-10.4); Platelet Count 223 10^3/uL (130-400); Red Blood Cell Count 2.43 10^6/uL (4.20-5.40); Red Cell Dist. Width 16.6 % (11.5-14.5); White Blood Cell Count 11.3 10^3/uL (4.8-10.8)
[2023-10-28 05:26] LABS: Blood Urea Nitrogen 24 mg/dl (7-17); Calcium 8.5 mg/dl (8.4-10.2); Carbon Dioxide 23 mmol/L (22-30); Chloride 111 mmol/L (98-107); Estimated Creatinine Clearance 54 ml/min; Glucose 90 mg/dl (70-99); Magnesium 2.1 mg/dl (1.6-2.3); Potassium 3.5 mmol/L (3.5-5.1); Sodium 137 mmol/L (135-145); eGFR > 60.00
--- NOTE | 2023-10-28 08:43 | W.PN.CRS1 ---
Today's Communication / Plan
-
diet advancement
no surgery intervention at this time
Assessment/Plan
-
Assessment: 87-year-old female from [facility] within the past medical history of atrial fibrillation on Eliquis, found to have a large fecal burden and stercoral colitis on CT
Plan:
1. Advanced to soft and bite size food by hospitalist.
2. No need for surgical intervention at this time.
3. Continue MiraLAX and Colace.
4. Enemas as needed for constipation.
5. Wound care per vascular.
Subjective Data
Subjective Data
Date of Service: October 28, 2023
Patient states she is hungry. She denies nausea or vomiting. She denies abdominal pain.
Objective Data
-
Vital Signs
Temp Pulse Resp BP Pulse Ox
98.1 F 81 16 179/92 97
10/28/23 07:30 10/28/23 07:30 10/28/23 07:30 10/28/23 07:30 10/28/23 07:30
Intake & Output
10/27/23 10/28/23 10/29/23
06:59 06:59 06:59
Intake Total 600 / 600 460 / 460
Balance 600 / 600 460 / 460
Intake:
Oral fluids 600 / 600 360 / 360
IV piggybacks 100 / 100
Other:
Number of approximated MODERATE 2 2
amounts of urine
How many times incontinent 1
SMALL amount urine
Lab Results
10/28/23 04:47
10/28/23 04:47
Physical Exam
-
General: No Acute Distress and AOx3
Abdomen: Soft, Non Distended and Non Tender
Rectal: Other (soft stool in rectum, no masses or blood noted)
Skin: Warm and Dry
--- NOTE | 2023-10-28 09:23 | PTOTSP ---
Speech Language Pathology
Pt seen for dysphagia tx. P.O. trials of regular solids and thin liquids via cup/straw provided. Adequate mastication, bolus formation, and A-P transit noted with no oral residue. Consistent brief throat clear/cough with consecutive sips of
liquids. No overt signs of aspiration with thin liquids via single sips, via cup or straw.
Recommend:
(1) Upgrade to regular solids/thin liquids
(2) Aspiration precautions: single sips only, slow rate, sit upright, set up-assist
(3) Meds as tolerated
(4) PRODUCE RUNNER to continue to follow
[2023-10-28] MEDS: PROTONIX IV 40 MG IV (09:59)
[2023-10-28] MEDS: DESENEX/MITRAZOL/ZEASORB 1 APPLIC TOPICAL (10:00)
[2023-10-28] MEDS: HYDROPHOR 1 APPLIC TOPICAL (10:00)
[2023-10-28] MEDS: NSS (PRESERVATIVE FREE) 10 ML IV (10:00)
--- NOTE | 2023-10-28 12:17 | CM ---
Addendum entered by Chiara Barragan 10/28/23 14:43:
Patient will be picked up at 7:30pm by ambulance. Patient's daughter made aware.
Original Note:
Chart reviewed and patient is for possible return to long-term today, case coordinator spoke with admissions at [facility], and bed is available today, patient will need ambulance transport.
Plan; Patient to return to [facility] when stable.
Report [phone]
--- NOTE | 2023-10-28 13:53 | W.PN.HOSP.TC ---
Today's Communication/Plan
-
d/c
Assessment / Plan
Assessment / Plan
pt is an 87 year old female
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
cyanotic left forefoot with great toe necrotic wound (POA)--pulses present by doppler--apprec vascular--no plans for intervention
Abnormal UA--likely infected--urine culture with yeast--can consider stopping rocephin
Paroxysmal Atrial Fibrillation - Currently in sinus rhythm- restart diltiazem and Eliquis acutely--Monitor on telemetry.
Chronic HF - Unknown Type--Patient maintained on Lasix regimen - ? for LE edema--Hold diuretic acutely--Follow daily weights, I/Os, etc--Dose Lasix PRN.
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
Essential Hypertension- BP on the lower side in the ED- Will hold BP medications acutely and resume one at a time as BP allows.
wound (POA) --Stage 1 sacral pressure injury and Stage 1 bilateral heel pressure injuries
underweight BMI
DVT Prophylaxis: SCDs
Code Status: DNR
Anticipated Discharge: Today
Subjective/Interval History
-
Date of Service: October 28, 2023
pt without c/o--spoke with pt senior care provider, stool output decreased from this AM
Objective Data
-
Labs:
Laboratory Results
10/28/23
04:47
WBC 11.3 H
Hgb 8.6 L
Hct 25.2 L
Plt Count 223
Sodium 137
Potassium 3.5
Chloride 111 H
Carbon Dioxide 23
BUN 24 H
Creatinine 0.5 L
Glucose 90
Calcium 8.5
Vital Signs:
max temp for 24 hours
10/28/23
07:30
Temp 98.1 F
Vital Signs
Temp Pulse Resp BP Pulse Ox
97.9 F 74 16 186/93 98
10/28/23 11:30 10/28/23 11:30 10/28/23 11:30 10/28/23 11:30 10/28/23 11:30
I&O
10/27/23 10/28/23 10/29/23
06:59 06:59 06:59
Intake Total 600 / 600 460 / 460
Balance 600 / 600 460 / 460
Review of Systems
-
All other systems: Reviewed and negative
Physical Exam
-
General: Appears Chronically Ill
HEENT: Normocephalic and Atraumatic
Respiratory: Clear to Auscultation; Negative Wheezes or Rhonchi
Cardiac: Regular Rhythm and S1/S2; Negative Murmur
GI: Soft, Nontender, Nondistended and Normal Bowel Sounds
Musculoskeletal: No Clubbing, No Cyanosis and No Edema
Neuro: Awake
--- NOTE | 2023-10-28 16:17 | W.DCSUMMARY ---
Discharge Summary
Discharge Data
Date of Admission: 10/26/23
Date of Discharge: 10/28/23
-
Pending Results: No
Hospital Course
Primary care physician : Chuck Dasilva
Principal Discharge diagnosis : Sepsis due to stercoral colitis with toxic metabolic encephalopathy, cyanotic left forefoot with great toe necrotic wound
Chronic Discharge diagnosis : Paroxysmal atrial fibrillation, chronic congestive heart failure unknown type, lymphocytic colitis, essential hypertension, wound present on admission (stage I sacral pressure injury and stage I bilateral heel pressure
injuries), underweight BMI
Hospital Course : Patient is 87-year-old female who presented for mental status change. She was reportedly found to be poorly responsive. Per her family she had been 'normal the day prior'. Patient does not open eyes or engage in spoken
conversation in the emergency department. She was recently hospitalized for sepsis. Patient was admitted.
Problem #1: Sepsis due to stercoral colitis with toxic metabolic encephalopathy. Patient had a CAT scan done which showed large stool burden in the rectosigmoid colon associated with colonic wall changes and stercoral colitis. Patient was started
on IV Rocephin and Flagyl. Colorectal surgery was consulted. Patient was placed on a bowel regimen along with enema as needed. Recommendations from colorectal are to continue stool softeners and finish antibiotic course.
Problem #2: Cyanotic left forefoot with great toe necrotic wound. Pulses were present by Doppler. Vascular surgery was consulted. Patient had unobtainable ankle-brachial indices (ABIs) due to noncompressible vessels. There were no plans for any
intervention at this point. If patient or family desires workup they have been instructed to follow-up with vascular as an outpatient.
Problem #3: All other medical issues. These include Paroxysmal atrial fibrillation, chronic congestive heart failure unknown type, lymphocytic colitis, essential hypertension, wound present on admission (stage I sacral pressure injury and stage I
bilateral heel pressure injuries), underweight BMI. These medical issues were stable during her hospitalization. Medications were continued as able.
Patient is stable to return to jail at this time. If there are any questions regarding this dictation or her hospital stay, please not hesitate to call. Our office number is [phone].
Important imaging findings :
CT SCAN ABDOMEN/PELVIS IMPRESSION:
1. Severe fecal retention throughout the rectosigmoid colon. Rectum measures up to 7.7 cm in diameter. Findings are consistent with severe constipation and/or fecal impaction. Inflammatory change at the rectosigmoid junction is suggestive of
stercoral colitis.
2. Cystic lesion within the tail the pancreas, measuring 1.5 cm in diameter, incompletely characterized on the current noncontrast CT. Consider contrast-enhanced abdominal MRI for further characterization.
3. Compression fractures of the L3 and T8 vertebral bodies. Please correlate with symptoms to determine the acuity of the fractures.
Discharge Plan
-
Patient Disposition: [facility]
Discharge Diagnosis/Procedures: Sepsis due to stercoral colitis, cyanotic left forefoot with great toe necrotic wound present on admission, paroxysmal atrial fibrillation, chronic heart failure unknown type, history of lymphocytic colitis, essential
hypertension, stage I sacral pressure injury and stage I bilateral heel pressure injuries close present on admission, underweight BMI
Condition: Good
Diet: As tolerated and Regular
Activity: As tolerated
Driving Restrictions: As prior to admission
Bathing Restrictions: None
Activity Restrictions/Additional Instructions:
Wound Care Instructions LE skin tears- Clean with normal saline or soap and water. Cover with adaptic and silicone border foam. Change Q 72 hour and PRN if loose or soiled.
Stage 1 on sacrum- no-sting barrier and silicone border foam. Change Q 3 days and PRN if loose or soiled.
Stage 1 on giftd-ea-eezpo barrier and silicone border foam. Change Q 3 days and PRN if loose or soiled.
Left great toe- Clean with normal saline and apply Betadine daily.
Desenex to fungal appearing rash on groin and buttocks
Static air overlay or air mattress
frequent continence care with use of barrier ointment
heels off-loaded with pillows under calves
Keep HOB at 30 degrees with legs slightly elevated
Turning schedule
Referrals:
Chuck Dasilva MD [Family Provider] - in less than 1 week
Alexia Jacobs CRNP [Specified Professional Personl] - 11/26/23 8:45 am (Vascular follow up)
Prescriptions:
New
polyethylene glycol 3350 [HealthyLax] 17 gram Powder In Packet
17 g PO DAILY Qty: 0 0RF
miconazole nitrate [Miconazorb AF] 2 % Powder
1 applic topical BID Qty: 0 0RF
docusate sodium 100 mg Capsule
100 mg PO BID Qty: 0 0RF
metronidazole 500 mg tablet
500 mg PO TID Qty: 30 0RF
Rx Instructions:
take for 10 days
cephalexin 500 mg capsule
500 mg PO BID Qty: 20 0RF
Rx Instructions:
take for 10 days
Continued
hydroxyurea 500 mg Capsule
500 mg PO MOWEFR
lisinopril 20 mg Tablet
20 mg PO DAILY
famotidine 40 mg Tablet
80 mg PO DAILY
diltiazem HCl 240 mg Capsule,Extended Release 24 Hr
240 mg PO DAILY
hydralazine 25 mg Tablet
25 mg PO TID
acetaminophen 650 mg Tablet
650 mg PO Q6H PRN (Reason: general discomfort)
bisacodyl 10 mg Suppository
10 mg FL DAILY PRN (Reason: constipation)
white petrolatum Ointment
1 applic TOPICAL Q6HPRN PRN (Reason: dry skin)
furosemide [Lasix] 20 mg Tablet
20 mg PO DAILY
gabapentin 100 mg Capsule
100 mg PO BID
ergocalciferol (vitamin D2) 1,250 mcg (50,000 unit) Capsule
1,250 mcg PO WE
budesonide 3 mg Capsule,Delayed,Extend.Release
3 mg PO TID
Eliquis 2.5 mg Tablet
2.5 mg PO BID
carboxymethylcellulose sodium 1 % Drops
1 drp BOTH EYES Q6HPRN PRN (Reason: dry eyes)
Discharge Orders:
Discharge Patient (As Directed); Ordered 10/28/23
Ordered By: Sarah Junior
Discharge Date and Time
Print Language: LAO
[2023-10-28] MEDS: CARDIZEM CD 240 MG PO (17:06)
== END 2023-10-28 20:00 | DRG 871 ==
LOC: 4 WEST ACU 02:22
PROVIDERS: ADMITTING PHYSICIAN Hospitalist; ATTENDING PHYSICIAN Internal Medicine; EMERGENCY PHYSICIAN Emergency Medicine; FAMILY PHYSICIAN Internal Medicine; OTHER PHYSICIAN Surgery; OTHER PHYSICIAN Surgery Vascular Surgery
DX: A41.9 Sepsis, unspecified organism (principal); G92.8 Other toxic encephalopathy; N39.0 Urinary tract infection, site not specified; I13.0 Hypertensive heart and chronic kidney disease with heart failure and stage 1 through stage 4 chronic kidney disease, or unspecified chronic kidney disease; I96 Gangrene, not elsewhere classified; K52.89 Other specified noninfective gastroenteritis and colitis; I48.0 Paroxysmal atrial fibrillation; K52.832 Lymphocytic colitis; I50.9 Heart failure, unspecified; N18.9 Chronic kidney disease, unspecified; Z66 Do not resuscitate; Z79.01 Long term (current) use of anticoagulants; L89.151 Pressure ulcer of sacral region, stage 1; R63.6 Underweight; Z68.20 Body mass index [BMI] 20.0-20.9, adult; R23.0 Cyanosis; L89.611 Pressure ulcer of right heel, stage 1; L89.621 Pressure ulcer of left heel, stage 1; Z11.52 Encounter for screening for COVID-19
CPT/HCPCS: 51701; 70450; 71045; 74176; 80048; 80053; 81003; 81015; 83605; 83735; 83880; 84443; 84484; 85025; 85027; 87040; 87086; 87502; 87811; 92526; 92610; 93005; 93922; 93925; 96361; 96365; 96375; 97163; 97167; 99285

== ENCOUNTER 2023-10-29 11:59 | Inpatient (IN) | payer MEDICARE, BC, SELFPAY ==
[2023-10-29] VITALS (18 sets, daily range): BP systolic 102–173; BP diastolic 62–109; BMI 21.3
[2023-10-29 07:36] LABS: Blood Urea Nitrogen 15 mg/dl (7-17); Calcium 8.9 mg/dl (8.4-10.2); Carbon Dioxide 18 mmol/L (22-30); Chloride 111 mmol/L (98-107); Glucose 101 mg/dl (70-99); Sodium 136 mmol/L (135-145); eGFR > 60.00
--- NOTE | 2023-10-29 07:42 | ED.GENMED ---
History of Present Illness
General
Chief Complaint: Chest Problem
Source: ambulance crew
Exam Limitations: none
Time Seen by Provider: 10/29/23 07:32
Nursing documentation reviewed up to this point in time: agreed with
Travel History
Have you had any contact with someone who has COVID-19?: Unable to Answer
Do you have any symptoms of coronavirus? Fever > 100 degrees, chills, cough, shortness of breath, sore throat, loss of taste or smell, muscle aches, or headache?: Unable to Answer
History of Present Illness
History of Present Illness:
87-year-old female presents emergency department due to reported pain all over, chest pain. When questioned, she does not respond but moans. Discharged yesterday due to sepsis due to stercoral colitis with toxic metabolic encephalopathy, cyanotic
left forefoot with great toe necrotic wound.
Past History
Past History
ED Past Medical History: Arrthythmia, HTN, Hypothyroidism, Other (Sepsis), Other (Dementia) and Other (Chronic kidney disease)
Social History
Tobacco: Non-smoker
Alcohol: None
Drug: None
Living: [facility]
Review of Systems
Review of Systems
Allergies reviewed?: Yes
Unable to obtain full review of systems at this time due to: dementia
Phy Exam
Physical Exam
Physical Exam:
Physical Exam
General: Chronic ill appearance, temperature 98.2, moans in response to questions
Neck: supple. no meningeal signs. normal posterior pharynx
Heart: s1/s2 irregular tachycardia, no murmur. equal radial
pulses.
HEENT: Pupils equal round reactive to light, EOMI
Lungs: no acute respiratory distress. clear bilaterally
Abdomen: normal bowel sounds. not tender. no CVAT
Neuro: awake, moans in response to questions. no focal neurological deficits cranial nerves II through XII intact
Skin: no rash
Psychiatric: well kept. interactive and cooperative
Extremities: necrotic left great toe, good distal pulses
Course
Orders/Labs/Results
Orders:
Orders
10/29/23 Breakfast
Cholesterol Lowering
At Your Request: Limited Participation
Cholesterol Lowering: Sodium, 2 Gram
10/29/23 06:40
EKG [Electrocardiogram (*1)] Urgent
Reason for Study: Chest Pain
10/29/23 06:41
EKG- Treatment ONCE
10/29/23 07:02
Basic Metabolic Panel Urgent
10/29/23 07:43
Straight cath- Treatment ONCE
10/29/23 07:46
CR Chest Portable - 1 View Urgent
Comment:
Reason For Exam: chest pain
Reason Study Needs to be Portable: Unable to Transport
10/29/23 07:58
Urinalysis Reflex To Culture Urgent
Date Specimen was Collected: 10/29/23
Time Specimen was Collected: 07:57
Urine Microscopic Reflex Cult Urgent
Urine Culture Urgent
NATALIE Source: U
Specimen Description:
Date Specimen was Collected: 10/29/23
Time Specimen was Collected: 07:57
10/29/23 08:13
Complete Blood Count/With Diff Urgent
Comment: PREVIOUS CLOTTED,REDRAW
Manual Differential Urgent
Troponin I Urgent
Blood Culture Q30M
NATALIE Source: Blood/Venous
Specimen Description:
10/29/23 08:15
Comprehensive Metabolic Panel Urgent
Lactate Level [Lactic Acid] Urgent
Magnesium Urgent
Comment: ADD ON
10/29/23 08:30
Blood Culture Q30M
NATALIE Source: Blood/Venous
Specimen Description:
10/29/23 09:24
Add On- LAB Urgent
Tests Added?: magnesium
10/29/23 09:34
Potassium Chloride [KCl] 40 meq 0.9% Sodium Chloride 250 ml [Nss] 250 ml IV NOW
10/29/23 11:20
EKG [Electrocardiogram (*1)] Urgent
Reason for Study: Chest Pain
10/29/23 11:31
Admit/Transfer Patient As Directed
Co-Sign Provider:
Level of Care: Inpatient admission
Assign to:: Telemetry
Physician / Group: shahnaz gardner
Diagnosis: HypokalemiaAflutter,UTI,Mild TME
Reason for Telemetry: Arrhythmia
Date to Stop Telemetry: 11/01/23
Time to Stop Telemetry: 11:00
Reason for Hospitalization: HypokalemiaAflutter,UTI,Mild TME
Expected length of stay greater than two midnights?: Yes
ELOS- Estimated Length of Stay in days: 3
I certify the patient meets the requirements for IP care: Yes
10/29/23 11:34
Code Status As Directed
Resuscitation Status: Do not resuscitate
Reached after discussion with pt or family/Healthcare POA: Yes
10/29/23 11:35
DNR Bracelet Application ONCE
10/29/23 11:39
Echo 2D MMode Color/Doppler [Echo 2D MMode Color/Doppler] Routine
Reason for Study: aflutter
10/29/23 11:40
CARDIOLOGY CONSULT Urgent
Consulting Provider: Asher Singh
Was physician already notified: Yes
10/29/23 12:00
CefTRIAXone [Rocephin] 1,000 mg IV Q24H
Flush (0.9% Sodium Chloride) [Flush (Nss)] See Dose Instructions IV PER PROTOCOL
MetroNIDAZOLE 500 MG/100 ML [Flagyl 500 mg] 100 ml IV Q8H
Sterile Water [Sterile Water For Injection] 10 ml IV Q24H
10/29/23 14:15
Troponin I Q6H
Acetaminophen [Tylenol] 650 mg PO Q6HPRN PRN
Bisacodyl [Dulcolax] 10 mg RECTAL DAILYPRN PRN
Diltiazem HCl [Cardizem] 2.5 mg IV Q6H
Hydroxyurea [Hydrea] 500 mg PO MoWeFr@0800
10/29/23 14:15
Activity As Directed
Activity Level: As Tolerated
Intake/ Output As Directed
Frequency: Per unit guidelines
Pneumatic Compression Sleeves As Directed
Type: Knee high
Vital Signs As Directed
Frequency: Per unit guidelines
Weight As Directed
Frequency: Daily
Pulse Ox/spot Check [RESP] Routine
Quantity: 1
DX Deep Vein Thrombosis Video Routine
10/29/23 14:26
Artificial Tears (Pf) [Refresh Eye Drops (Pf)] 1 drops BOTH EYES Q6HPRN PRN
10/29/23 14:27
Petrolatum/Mineral Oil [Hydrophor] See Dose Instructions TOPICAL Q6HPRN PRN
10/29/23 16:00
Budesonide [Entocort EC] 3 mg PO TID
10/29/23 20:00
Apixaban [Eliquis] 2.5 mg PO BID
Miconazole Nitrate [Desenex/Mitrazol/Zeasorb] See Dose Instructions TOPICAL BID
[id number]-[id number]-[id number] [Triple Antibiotic] 1 applic TOPICAL BID
10/29/23 20:15
Troponin I Q6H
10/30/23 06:00
Basic Metabolic Panel IN AM
Complete Blood Count/With Diff IN AM
10/30/23 08:00
Famotidine [Pepcid] 80 mg PO DAILY
Polyethylene Glycol Powder [Miralax] 17 grams PO DAILY
10/31/23 06:00
Basic Metabolic Panel IN AM
Complete Blood Count/With Diff IN AM
11/01/23 06:00
Basic Metabolic Panel IN AM
Complete Blood Count/With Diff IN AM
11/01/23 11:00
DC Protocol for Telemetry ONCE
11/03/23 08:00
Ergocalciferol [Drisdol (Vitamin D2)] 50,000 units PO WE
Abnormal Lab Results
10/29/23 10/29/23 10/29/23
07:02 07:58 08:13
WBC 15.9 H 10^3/uL
(4.8-10.8)
RBC 2.76 L 10^6/uL
(4.20-5.40)
Hgb 9.8 L g/dL
(12.0-16.0)
Hct 27.6 L %
(37.0-47.0)
MCV 100.0 H fL
(81.0-99.0)
MCH 35.5 H pg
(27.0-31.0)
RDW 16.6 H %
(11.5-14.5)
Abs Neuts (Manual) 12.5 H 10^3/uL
(1.4-6.5)
Segmented Neutrophils 77 H %
(42-75)
Lymphocytes (Manual) 12 L %
(20-51)
Potassium
Chloride 111 H mmol/L
(98-107)
Carbon Dioxide 18 L mmol/L
(22-30)
Creatinine 0.4 L mg/dL
(0.6-1.0)
Glucose 101 H mg/dl
(70-99)
Total Protein
Albumin
Urine Ketones 2+ A
(Negative)
Leukocyte Esterase Rfl 1+ A
(Negative)
Urine WBC (Reflex) 30-40 A /HPF
(0-5)
Urine Bacteria (Reflex) Few A
(Negative)
Urine Yeast Moderate A
(Negative)
10/29/23
08:15
WBC
RBC
Hgb
Hct
MCV
MCH
RDW
Abs Neuts (Manual)
Segmented Neutrophils
Lymphocytes (Manual)
Potassium 2.9 L mmol/L
(3.5-5.1)
Chloride 111 H mmol/L
(98-107)
Carbon Dioxide 19 L mmol/L
(22-30)
Creatinine 0.4 L mg/dL
(0.6-1.0)
Glucose 100 H mg/dl
(70-99)
Total Protein 5.1 L g/dl
(6.3-8.2)
Albumin 2.7 L g/dl
(3.5-5.0)
Urine Ketones
Leukocyte Esterase Rfl
Urine WBC (Reflex)
Urine Bacteria (Reflex)
Urine Yeast
10/29/23 08:13
10/29/23 08:15
Vital Signs
Initial and Last Documented VS:
Initial Vital Signs
Temp Pulse Resp BP Pulse Ox
98.2 F 81 20 124/109 96
10/29/23 06:34 10/29/23 06:34 10/29/23 06:34 10/29/23 06:34 10/29/23 06:34
Last Documented Vital Signs
Temp Pulse Resp BP Pulse Ox
99 F 92 14 128/83 97
10/29/23 07:56 10/29/23 12:00 10/29/23 12:00 10/29/23 12:00 10/29/23 08:45
MDM/Problems Addressed
Differential Diagnosis Includes:
ACS, rapid atrial fibrillation, UTI, pneumonia, sepsis
MDM/Problems Addressed:
87-year-old female with intermittent altered mental status, UTI, paroxysmal atrial fibrillation
Chronic conditions affecting care: HTN and Arrhythmia
Acute Exacerbation and/or Progression of Chronic Illness: HTN and Arrhythmia
*Radiology
Radiology exam reviewed: radiology read reviewed (cxr nad)
*Pulse Oximetry
Patient hypoxic: no
*EKG
Interpreted by ED Provider?: Yes
EKG Intrepretation Date: 10/29/23
EKG Intrepretation Time: 06:44
Interpretation: abnormal
Comparison EKG: changes noted
Heart Rate: 145
Rate: tachycardiac
Rhythm: atrial flutter
[place]: normal axis
Interval: normal interval
QRS Pattern: left vent hypertrophy
Ischemia: no ischemia
*Seat Covers Trimmer Interpretation
Rate: normal
Interpretation: normal
Heart Rate: 84
Rhythm: sinus
*Critical Care Note
Total Time (30-74mins, 75-104mins- exclusive of procedures): Not Applicable
Data Reviewed
Review of Other/Old Records Reveals: Labs (Recent UA consistent with yeast)
Patient Management
Social determinants of health affecting care: Living situation
Discussion with other providers: Hospitalist
Escalation/DeEscalation of care consider admission/obs:
Admit indicated
ED Attending Note
-
Portions of this chart may have been created with voice recognition software.� Occasional wrong word or��sound alike� substitutions may have occurred due to the inherent limitations of voice recognition software.
Discharge Plan
Departure
Patient Disposition: Admit
Date of Disposition: 10/29/23
Time of Disposition: 09:31
Admit to: Telemetry
Presentation/result/management discussed w/ accepting MD/DO: Hospitalist
Patient with high blood pressure during this ER visit?: No
Condition: Fair
Discharge Problem:
Acute hypokalemia, Acute UTI
Interventions
Interventions:
*Risk Screen - Suicide Last Done: 10/29/23 06:34
*General Assessment Last Done: 10/29/23 06:34
*Neglect/Abuse Screening Last Done: 10/29/23 06:34
ED- Fall Risk Assessment Last Done: 10/29/23 06:40
*ED COVID-19 Vaccine History Last Done: 10/29/23 06:40
*Nursing Disposition Last Done: 10/29/23 13:57
ED- Cardiac Assessment Last Done: 10/29/23 06:40
ED- Pulmonary Assessment Last Done: 10/29/23 06:40
Discharge Date and Time
Discharge Date/Time: 10/29/23 14:00
[2023-10-29 08:12] LABS: Urine Albumin Trace (Neg - Trace); Urine Bilirubin Negative (Negative); Urine Character Clear (Clear); Urine Color Yellow; Urine Glucose Negative (Negative); Urine Ketone 2+ (Negative); Urine Leukocyte 1+ (Negative); Urine Nitrite Negative (Negative); Urine Occult Blood Negative (Negative); Urine Specific Gravity 1.015 (<1.030); Urine Urobilinogen Negative (Neg - 1+)
[2023-10-29 08:35] LABS: Lactic Acid 1.1 mmol/L (0.7-2.0)
[2023-10-29 08:36] LABS: ALT (SGPT) 18 U/L (0-35); AST (SGOT) 20 U/L (14-36); Albumin 2.7 g/dl (3.5-5.0); Alkaline Phosphatase 73 U/L (38-126); Blood Urea Nitrogen 15 mg/dl (7-17); Calcium 8.6 mg/dl (8.4-10.2); Carbon Dioxide 19 mmol/L (22-30); Chloride 111 mmol/L (98-107); Glucose 100 mg/dl (70-99); Potassium 2.9 mmol/L (3.5-5.1); Sodium 135 mmol/L (135-145); Total Bilirubin 0.5 mg/dl (0.2-1.3); Total Protein 5.1 g/dl (6.3-8.2); eGFR > 60.00
[2023-10-29 08:40] LABS: Urine Bacteria Few (Negative); Urine White Cell 30-40 /HPF (0-5)
[2023-10-29 08:41] LABS: Hematocrit 27.6 % (37.0-47.0); Hemoglobin 9.8 g/dL (12.0-16.0); Mean Corp Hgb Conc. 35.5 g/dL (33.0-37.0); Mean Corpuscular Hgb 35.5 pg (27.0-31.0); Platelet Count 316 10^3/uL (130-400); Red Blood Cell Count 2.76 10^6/uL (4.20-5.40); Red Cell Dist. Width 16.6 % (11.5-14.5); White Blood Cell Count 15.9 10^3/uL (4.8-10.8)
[2023-10-29 08:42] LABS: Urine Red Blood Cell 0-2 /HPF (0-2); Urine Yeast Moderate (Negative)
[2023-10-29 08:43] LABS: Urine Granular Cast 0-2 /LPF (0); Urine Hyaline Cast 0-2 /LPF (0-2)
[2023-10-29 08:47] LABS: Troponin I < 0.012 ng/ml
[2023-10-29] MEDS: KCL 270 MEQ IV (09:45)
[2023-10-29 10:00] LABS: Magnesium 1.9 mg/dl (1.6-2.3)
[2023-10-29 10:29] LABS: Absolute Neutrophils -Man Diff 12.5 10^3/uL (1.4-6.5); Band Neutrophils 2 % (0-3); Lymphocytes 12 % (20-51); Monocytes 2 % (2-9); Segmented Neutrophils 77 % (42-75)
[2023-10-29 10:30] LABS: Anisocytosis 1+; Hypochromasia Slight; Metamyelocytes 3 % (-); Microcytosis Slight; Myelocytes 4 % (-); Normal RBC Morphology No; Platelets Checked Yes; Total Cells Counted 100
[2023-10-29] MEDS: ROCEPHIN 1000 MG IV (11:31)
[2023-10-29] MEDS: STERILE WATER FOR INJECTION 10 ML IV (11:32)
--- NOTE | 2023-10-29 11:40 | HPS.HSE ---
Family Physician
-
Family Physician: Ki Perez MD
Chief Complaint
-
Chest pain
History of Present Illness
87-year-old female with past medical history of paroxysmal A-fib/a flutter, lymphocytic colitis, hypertension, recent stercoral colitis, Essential hypertension, cyanotic left forefoot with great toe necrotic wound came to the hospital from [place]
point with chest pain. Patient was discharged yesterday after her admission with sepsis secondary to stercoral colitis along with toxic metabolic encephalopathy. Patient also had cyanotic left forefoot with great toe necrotic wound. She was seen
by vascular surgery who did not recommended any surgical intervention. Patient urine culture at that time was consistent with yeast. Patient was initially on IV antibiotics and was then discharged with oral antibiotics. In the ED today patient
was found to be in a flutter with rapid ventricular rate. Currently denies any nausea, vomiting. I also notified patient daughter who was not aware that patient was sent back to the ED for evaluation.
Majority of patient care per daughter is at [facility]. Patient was at residential near [place] since July and was recently moved to [facility].
Medical History
Past Medical History
Past Medical History: Reports Arrhythmia, CHF, HTN, Hypercholesterolemia and Other (Lymphocytic colitis, cyanotic left forefoot with great toe necrotic wound)
Past Surgical History: Reports Other
Social History
Unable to obtain full social history at this time due to: Dementia
Tobacco: Non-smoker
Family History
Family History: Not pertinent
Allergies / Home Medications
Allergies reflects when Allergies were last updated in [employer].
Home Medications with original date entered in [employer]
Allergy/Medication List:
Allergies
Allergy/AdvReac Type Severity Reaction Status Date / Time
Iodinated Contrast Media Allergy Unknown Verified 10/25/23 21:31
Penicillins Allergy Unknown Verified 10/25/23 21:31
Home Medications
apixaban 2.5 mg tablet (Eliquis) 2.5 mg PO BID Blood Clot Prevention/Tx 10/25/23
bisacodyl 10 mg rectal suppository 10 mg [place] DAILY PRN constipation 10/25/23
budesonide 3 mg capsule,delayed,extended release 3 mg PO TID colitis 10/25/23
carboxymethylcellulose sodium 1 % eye drops 1 drp BOTH EYES Q6HPRN PRN dry eyes 10/25/23
diltiazem HCl 240 mg capsule,24 hr,extended release 240 mg PO DAILY Blood Pressure 10/25/23
ergocalciferol (vitamin D2) 1,250 mcg (50,000 unit) capsule 1,250 mcg PO WE Supplement 10/25/23
famotidine 40 mg tablet 80 mg PO DAILY Gastrointestinal Issue 10/25/23
furosemide 20 mg tablet (Lasix) 20 mg PO DAILY Fluid Retention/Swelling 10/25/23
gabapentin 100 mg capsule 100 mg PO BID peripheral neuropathy/pain 10/25/23
hydralazine 25 mg tablet 25 mg PO TID Blood Pressure 10/25/23
hydroxyurea 500 mg capsule 500 mg PO MOWEFR Cancer 10/25/23
lisinopril 20 mg tablet 20 mg PO DAILY Blood Pressure 10/25/23
white petrolatum 1 applic topical Q6HPRN PRN dry skin 10/25/23
cephalexin 500 mg capsule 500 mg PO BID #20 caps 10/28/23
metronidazole 500 mg tablet 500 mg PO TID #30 tabs 10/28/23
polyethylene glycol 3350 17 gram oral powder packet (HealthyLax) 17 g PO DAILY #0 ea 10/28/23
acetaminophen 325 mg tablet (Tylenol) 650 mg PO Q6HPRN PRN MILD PAIN 10/29/23
miconazole nitrate 2 % topical powder (Miconazorb AF) 1 applic topical BID GROIN AND BUTTOCKS 10/29/23
neomycin-bacitracn Zn-polymyxn 3.5 mg-400 unit-5,000 unit top oint pkt (Triple Antibiotic) 1 applic topical BID FRONT RIGHT LEG TEAR 10/29/23
Review of Systems
-
History Source: Patient
A 12 point ROS was completed and negative except as noted: Yes
Cardiac: Reports Chest Pain
Physical Exam
Vital Signs
Vital Signs
Temp Pulse Resp BP Pulse Ox
99 F 82 17 105/62 97
10/29/23 07:56 10/29/23 11:15 10/29/23 11:15 10/29/23 11:00 10/29/23 08:45
Physical Exam
General: Well Nourished and No Apparent Distress
HEENT: Anicteric and Moist mucous membranes
Respiratory: Clear and Non Labored Respirations; No Wheezes
Cardiac: Irregular Rhythm and Tachycardia
GI: Soft, Non Tender and Non Distended
Rectal: Deferred by Provider
Genito-urinary: Deferred by me
Musculoskeletal: No Edema
Neuro: Awake
Psych: Calm
Laboratory Results
-
10/29/23 08:13
10/29/23 08:15
Laboratory Results
Lactic Acid 1.1 mmol/L (0.7-2.0) 10/29/23 08:15
Total Bilirubin 0.5 mg/dl (0.2-1.3) 10/29/23 08:15
AST 20 U/L (14-36) 10/29/23 08:15
ALT 18 U/L (0-35) 10/29/23 08:15
Alkaline Phosphatase 73 U/L (38-126) 10/29/23 08:15
Troponin I < 0.012 ng/ml 10/29/23 08:13
Data Reviewed
-
Lab Data: Labs Reviewed by me, Discussed with Physician and Discussed with Family
Impression/Plan
-
Chest pain, rule out ACS
Trend troponin
Cardiology consulted
Appears to be in a flutter with RVR in ED, also has low blood pressure so we will be cautious with Cardizem. At home on p.o. Cardizem. Will start with low-dose IV Cardizem for now
Rate appears to be high at times, replete potassium aggressively
Check echo
History of paroxysmal A-fib/flutter
In a flutter in ED
Replete potassium aggressively
IV diltiazem, if heart rate uncontrolled again then will start diltiazem drip
Continue with Eliquis
Cardiology evaluation
Suspect sepsis (cytosis, tachycardia) secondary to UTI
follow urine cx
Start ceftriaxone
blood cx
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
History of CHF, unknown type
Hold Lasix for now, check echo
Monitor I's and O's
History of lymphocytic colitis
Continue with budesonide, hydroxyurea
Recent admission with stroke or colitis
Continue laxatives
Continue Flagyl
wound (POA) --Stage 1 sacral pressure injury and Stage 1 bilateral heel pressure injuries
underweight BMI
DVT Prophylaxis: SCDs
Code Status: DNR
I discussed in great length with daughter. Patient has been in and out of the hospital and has been declining. Daughter is interested in palliative care.
I spent a total of 78 minutes with the patient or on the floor. More than 50% of this time involved counseling and coordination of care.
--- NOTE | 2023-10-29 13:00 | CM ---
CM reviewed medical records. Patient is from [facility]. Plan to return on discharge.
PLAN: [facility].
--- NOTE | 2023-10-29 13:05 | CON.CAR ---
Addendum entered and electronically signed by Asher Singh MD 10/29/23 15:02:
87-year-old woman with history of paroxysmal atrial fibrillation, seen by cardiology at [facility] in 2019 now admitted with chest pain, abdominal pain and 'pain all over'. In hospital was in atrial flutter with rapid ventricular response, was
in sinus rhythm during recent hospital stay with discharge yesterday. Recently hospitalized with sepsis and toxic metabolic encephalopathy related to stercoral colitis and discharged to [facility] yesterday. Patient unable to give history,
daughter is at bedside.
Allergies: Penicillin and contrast
Meds on admission Dulcolax, Tylenol, budesonide 3 mg 3 times daily, Keflex, diltiazem CD2 140 mg daily, Eliquis 2.5 mg twice daily, famotidine 80 mg a day, Lasix 20 mg a day, gabapentin, hydralazine 25 3 times daily, hydroxyurea 500 mg 3 days a
week, lisinopril 20 mg a day, Flagyl,
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
PSH: Unknown
FH: Noncontributory
SH: Lived independently at [facility] until April, was in rehab after hospital stay at [facility] [address] from late 2022 and more recently transferred to 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
ROS: Not obtainable
Pleasant, confused, no distress, does not remember why she is here
128/83, pulse now 80s and intermittent irregular, respirate 14, afebrile sats 97%, head neck exam unremarkable lungs are relatively clear with rare crackles left base, cardiac with variable rate but controlled, no murmurs JVD okay no bruits, abdomen
benign extremities dry great gangrene of left great toe with some cyanosis, no edema on right, neuro nonfocal
EKG: atrial flutter versus atrial tachycardia, SVT less likely, LVH, ST and T wave changes
White count 15.9, hemoglobin 9.8, MCV 100, potassium 2.9, BUN and creatinine 15 and 0.4, troponin is undetectable
Chest x-ray NAD, minimal left basilar atelectasis/scarring
Impression:
Presented with abdominal pain
Chest pain
Probable atrial flutter versus atrial tachycardia
Paroxysmal atrial fibrillation
Recent UTI
Chronic Eliquis anticoagulation
Hypertension
GERD
Recent admission at 10/25-10/28/23 w/ sepsis due to stercoral colitis
Dementia
Myeloproliferative disorder?
Plan:
Rate now controlled with IV diltiazem
Review echocardiogram
Continue Eliquis
Repeat EKG
Supplement potassium
Given patient's comorbidities, age, cognitive status therapy will be conservative
Original Note:
Consultation
Consultation Request
Date/Time Consultation Requested: 10/29/2023
Date/Time Consultation Performed: 10/29/2023
Requesting Provider: Dr. Cote
Performing Provider: Dr. Singh
Reason for Consultation: Aflutter
Medical History
-
History of Present Illness:
HPI: Mary Jane is an 87 year old female with PMH of paroxysmal atrial fibrillation, hypertension, CKD, and GERD. She presented to [facility] today for evaluation of 'pain all over' she notes that when she got to ER, she was having pain in her abdomen. She
also noted episode of pain into her chest after she had been in the ER for a while. She was recently admitted at 10/26/2023 to 10/28/2023 with stercoral colitis and was treated with Rocephin and Flagyl. Colorectal surgery saw patient that admission
and plan was to continue abx and use stool softeners as needed. She has history of paroxysmal atrial fibrillation and is maintained on diltiazem for rate control with Eliquis for anticoagulation. She reports she is not followed by a tape maker for
this and denies seeing cardiology recently. On arrival to ER, she was in rapid atrial fibrillation with HR in the 140s. She spontaneously converted to SR and remains in SR at this time. Following episode of chest pain, troponin was checked and was
negative. She reports her symptoms have all resolved and she feels well currently.
PMH:
Paroxysmal atrial fibrillation
Chronic Eliquis anticoagulation
Hypertension
CKD
GERD
Past Medical History
Past Medical History: Other (In HPI)
Social History
Tobacco: Non-Smoker
Alcohol: None
Drug: None
Living: Long-Term
Employment: Retired
Family History
Family History: Reviewed & Not Pertinent
Allergies / Home Medications
Allergy/AdvReac Type Severity Reaction Status Date / Time
Iodinated Contrast Media Allergy Unknown Verified 10/25/23 21:31
Penicillins Allergy Unknown Verified 10/25/23 21:31
�Medication �Instructions �Recorded �Confirmed �Type
apixaban 2.5 mg tablet (Eliquis) 2.5 mg PO BID Blood Clot 10/25/23 10/29/23 History
Prevention/Tx
bisacodyl 10 mg rectal suppository 10 mg [place] DAILY PRN constipation 10/25/23 10/29/23 History
budesonide 3 mg 3 mg PO TID colitis 10/25/23 10/29/23 History
capsule,delayed,extended release
carboxymethylcellulose sodium 1 % 1 drp BOTH EYES Q6HPRN PRN dry eyes 10/25/23 10/29/23 History
eye drops
diltiazem HCl 240 mg capsule,24 240 mg PO DAILY Blood Pressure 10/25/23 10/29/23 History
hr,extended release
ergocalciferol (vitamin D2) 1,250 1,250 mcg PO WE Supplement 10/25/23 10/29/23 History
mcg (50,000 unit) capsule
famotidine 40 mg tablet 80 mg PO DAILY Gastrointestinal 10/25/23 10/29/23 History
Issue
furosemide 20 mg tablet (Lasix) 20 mg PO DAILY Fluid 10/25/23 10/29/23 History
Retention/Swelling
gabapentin 100 mg capsule 100 mg PO BID peripheral 10/25/23 10/29/23 History
neuropathy/pain
hydralazine 25 mg tablet 25 mg PO TID Blood Pressure 10/25/23 10/29/23 History
hydroxyurea 500 mg capsule 500 mg PO MOWEFR Cancer 10/25/23 10/29/23 History
lisinopril 20 mg tablet 20 mg PO DAILY Blood Pressure 10/25/23 10/29/23 History
white petrolatum 1 applic topical Q6HPRN PRN dry 10/25/23 10/29/23 History
skin
cephalexin 500 mg capsule 500 mg PO BID #20 caps 10/28/23 10/29/23 Rx
metronidazole 500 mg tablet 500 mg PO TID #30 tabs 10/28/23 10/29/23 Rx
polyethylene glycol 3350 17 gram 17 g PO DAILY #0 ea 10/28/23 10/29/23 Rx
oral powder packet (HealthyLax)
acetaminophen 325 mg tablet 650 mg PO Q6HPRN PRN MILD PAIN 10/29/23 10/29/23 History
(Tylenol)
miconazole nitrate 2 % topical 1 applic topical BID GROIN AND 10/29/23 10/29/23 History
powder (Miconazorb AF) BUTTOCKS
neomycin-bacitracn Zn-polymyxn 3.5 1 applic topical BID FRONT RIGHT 10/29/23 10/29/23 History
mg-400 unit-5,000 unit top oint LEG TEAR
pkt (Triple Antibiotic)
Review of Systems
-
History Source: Patient
All other systems: Negative unless noted
Physical Exam
Vital Signs
Temp Pulse Resp BP Pulse Ox
99 F 92 14 128/83 97
10/29/23 07:56 10/29/23 12:00 10/29/23 12:00 10/29/23 12:00 10/29/23 08:45
Lab Results
10/29/23 08:13
10/29/23 08:15
Troponin I < 0.012 ng/ml 10/29/23 08:13
Physical Exam
General: Well Developed, Well Nourished and No Apparent Distress
HEENT: Normocephalic, Anicteric and Moist Mucous Membranes
Respiratory: Clear and Non Labored Respirations
Cardiac: S1/S2 and Regular Rhythm
Musculoskeletal: No Clubbing, Cyanosis and Edema
Skin: Warm and Dry
Neuro: Awake, Alert, Oriented and Nonfocal/Grossly Intact
Psych: Calm
Impression / Plan
-
PCP: Dr. Dasilva
Er Medical Technician: None, seen by Dr. Reveles once in 2019
Impression:
Presented with abdominal pain
Chest pain
UTI
Paroxysmal atrial fibrillation
Chronic Eliquis anticoagulation
Hypertension
CKD
GERD
Recent admission at 10/25-10/28/23 w/ sepsis due to stercoral colitis
Echo 10/29/2023: Study pending
Plan:
-Presented for evaluation of abdominal pain. Recently admitted at , discharged yesterday, with sepsis due to stercoral colitis.
-Continues on abx for colitis per colorectal surgery recommendations.
-In ER, also w/ evidence of possible UTI on UA. Urine culture pending. Blood cultures pending.
-WBC elevated at 15.9. Afebrile.
-By initial EKG, patient was noted to be in rapid atrial fibrillation with HR in 140s.
-Spontaneously converted to SR and remains in SR currently on review of telemetry. Repeat EKG.
-Known history of atrial fibrillation, maintained on Cardizem CD 240mg daily. Would continue.
-Continue Eliquis 2.5mg BID for anticoagulation (Age, weight)
-Chest pain occurred in the setting of rapid atrial flutter and has resolved w/ return to SR.
-Troponin negative, CXR overall unremarkable.
-Will check echo to assess EF. Patient does not believe she has had an echo before.
-K 2.9 on arrival. Agree w/ repletion.
HPI: Mary Jane is an 87 year old female with PMH of paroxysmal atrial fibrillation, hypertension, CKD, and GERD. She presented to [facility] today for evaluation of 'pain all over' she notes that when she got to ER, she was having pain in her abdomen. She
also noted episode of pain into her chest after she had been in the ER for a while. She was recently admitted at 10/26/2023 to 10/28/2023 with stercoral colitis and was treated with Rocephin and Flagyl. Colorectal surgery saw patient that admission
and plan was to continue abx and use stool softeners as needed. She has history of paroxysmal atrial fibrillation and is maintained on diltiazem for rate control with Eliquis for anticoagulation. She reports she is not followed by a tape maker for
this and denies seeing cardiology recently. On arrival to ER, she was in rapid atrial fibrillation with HR in the 140s. She spontaneously converted to SR and remains in SR at this time. Following episode of chest pain, troponin was checked and was
negative. She reports her symptoms have all resolved and she feels well currently.
Data Reviewed
-
EKG: Tracing Personally Visualized and interpreted
Radiology: Report Reviewed by me
Labs: Labs Reviewed by me
Old Records: Reviewed
[2023-10-29] MEDS: FLAGYL 500 MG 100 IV ×2 (13:54→22:11)
--- NOTE | 2023-10-29 15:34 | WOUNDNOTE ---
[facility] RN note: Patient admitted with altered mental status
See H&P for complete history.
PMH: [place] resident, HTN, lymphocytic colitis
Wound Location and type/assessment: Patient admitted with: Left great toe arterial appearing wound covered with eschar, multiple LE skin tears, fungal appearing rash of buttocks and groin, UE scattered ecchymosis, stage 1 of sacrum (appears to be a
healed stage 2 or 3), stage 1 bilateral heels. Patient slept during assessment and appeared to tolerate well. Spoke to patient's daughter who stated patient has not ambulated since July and intake has been poor. Per daughter patient sees
senior analysis specialist at who has been treating left great toe wound. The eschar is intact, no draining or odor noted. Patient has +3 edema and audible pulses. Left dorsal foot and great toe appear ecchymotic vs ischemic. Daughter said patient was wearing
compression but NH applying incorrectly so senior analysis specialist d/c. Patient is currently NPO and has a low BMI at 18.
Pressure redistribution devices in place: Static air overlay ordered, patient currently on Versa Care Accumax. Heels off-loaded with pillows under calves.
Plan: TT hospitalist and will defer for compression. Wound care provided as ordered. Daughter updated on care plan at bedside. Patient positioned in semi-side lying position. RN Pauline aware of order for static air overlay. Will confirm orders with
hospitalist and update nurse.
Updated care plan and will follow as needed.
Note to case management of equipment requested for discharge: Patient should have an air mattress at facility due to poor mobility and po intake.
Recommend follow up at wound care center upon discharge.
--- NOTE | 2023-10-29 15:35 | WOUNDNOTE ---
[facility] RN note: Patient admitted with chest pain
See H&P for complete history.
PMH: [place] resident, HTN, lymphocytic colitis. Recent admit 10/24-10/27 now returning with chest pain.
Wound Location and type/assessment: Patient admitted with: Left great toe arterial appearing wound covered with eschar, multiple LE skin tears, fungal appearing rash of buttocks and groin, UE scattered ecchymosis, stage 2 of sacrum, stage 1
bilateral heels. Per chart review of last admission, patient has not ambulated since July and intake has been poor. Per daughter report at prior admission, patient sees collaborating supervising physician at who has been treating left great toe wound. The eschar is
intact, no draining or odor noted. Patient has +2 edema and audible pulses. Left dorsal foot and great toe appear ecchymotic vs ischemic. Daughter said patient was wearing compression but NH applying incorrectly so collaborating supervising physician d/c. Patient is
currently NPO and has a low BMI at 18.
Pressure redistribution devices in place: Static air overlay placed on bed during assessment, heels off-loaded with pillows under calves.
Plan: TT hospitalist and will defer for compression. Wound care provided as ordered. Patient positioned in semi-side lying position. RN Will updated. Will confirm orders with hospitalist and update nurse.
Updated care plan and will follow as needed.
Note to case management of equipment requested for discharge: Patient should have an air mattress at facility due to poor mobility and po intake.
Recommend follow up at wound care center upon discharge.
--- NOTE | 2023-10-29 15:41 | WOUNDNOTE ---
RIGHT GREAT TOE
--- NOTE | 2023-10-29 15:41 | WOUNDNOTE ---
RIGHT GREAT TOE
--- NOTE | 2023-10-29 15:42 | WOUNDNOTE ---
RIGHT LATERAL LEG
[2023-10-29] MEDS: HYDREA 500 MG PO (15:44)
[2023-10-29] MEDS: ENTOCORT EC 3 MG PO ×2 (15:44→22:13)
[2023-10-29 20:50] LABS: Troponin I 0.487 ng/ml
[2023-10-29] MEDS: COLACE 100 MG PO (22:06)
[2023-10-29] MEDS: FLUSH (NSS) 2 FLUSH IV (22:11)
[2023-10-29] MEDS: ELIQUIS 2.5 MG PO (22:11)
[2023-10-29] MEDS: DESENEX/MITRAZOL/ZEASORB 1 APPLIC TOPICAL (22:13)
[2023-10-30] VITALS (7 sets, daily range): BP systolic 134–200; BP diastolic 80–114
--- NOTE | 2023-10-30 02:00 | PTCARENOTE ---
Pt. refused troponin draw, explained importance of lab draw, pt. still refused, notified SERGEY Sullivan.
[2023-10-30] MEDS: FLUSH (NSS) 2 FLUSH IV (04:18)
[2023-10-30] MEDS: FLAGYL 500 MG 100 IV ×2 (04:18→11:06)
[2023-10-30] MEDS: CARDIZEM CD 240 MG PO (08:41)
[2023-10-30] MEDS: COLACE 100 MG PO (08:42)
[2023-10-30] MEDS: DESENEX/MITRAZOL/ZEASORB 1 APPLIC TOPICAL ×2 (08:46→20:51)
[2023-10-30] MEDS: ELIQUIS 2.5 MG PO ×2 (08:46→20:45)
[2023-10-30] MEDS: MIRALAX 17 GRAMS PO (08:47)
[2023-10-30] MEDS: PEPCID 40 MG PO (08:47)
[2023-10-30] MEDS: ENTOCORT EC 3 MG PO ×3 (08:47→20:47)
--- NOTE | 2023-10-30 09:36 | W.PN.CARDCBS ---
Addendum entered and electronically signed by Sebastian Bailey MD 10/30/23 10:41:
patient seen and examined
noted paroxysms of AT/Afl
talking with a work colleague
exam:
aao x 3
non focal neurologically (baseline dementia)
ecchymotic
cor regular with paroxysms of tachycardia
no murmur
lungs ctab
abd soft nt nd
trace ext edema
Impression:
Presented with abdominal pain
Chest pain
UTI
Paroxysmal atrial fibrillation
Chronic Eliquis anticoagulation
Elevated troponin, suspected nonischemic myocardial injury
Hypertension
CKD
GERD
Recent admission at 10/25-10/28/23 w/ sepsis due to stercoral colitis
Echo 10/29/2023: EF 62%, MAC, mild MR, aortic sclerosis, normal right heart
Plan:
-She has no cardiac complaints overnight
-Upon review of telemetry remains in and out of atrial fibrillation/atrial flutter with rapid rates
-Continue outpatient Cardizem CD 240 mg daily
-Will add amiodarone 200 mg twice daily
-Follow QTc. Repeat EKG in a.m.
-Continue Eliquis 2.5 mg twice daily
-She initially presented with chest/epigastric pain which occurred in the setting of rapid atrial flutter. Troponin up to 0.487, trend to peak. Suspected nonischemic myocardial injury in the setting of rapid a flutter. Would plan to manage
conservatively given advanced age, comorbidities. Would avoid aspirin in the setting of chronic anemia, ecchymoses on exam, and chronic anticoagulation
-Echo with results as above, EF preserved
-With hypokalemia on arrival status post repletion. Repeat K pending 10/29. Magnesium stable as of 10/28
-Antibiotics per primary service for treatment of colitis and possible UTI
-Blood pressures are creeping up. given her hypokalemia and HTN I have no objection to adding low dose eric-inhibitor/arb/or spironolactone which would also raise potassium. can add PRN hydralazine IV for any markedly elevated BP but she is
asymptomatic
-PT/OT
Original Note:
Today's Communication / Plan
-
Remains with paroxysms of atrial fibrillation with rapid ventricular response overnight. Will add Amio 200 mg twice daily
Continue outpatient Cardizem and Eliquis
Repeat EKG in a.m. to reassess QTc
Trend troponin to peak. Manage conservatively
Follow potassium levels
Impression / Plan
-
PCP: Dr. Dasilva
Credit Card Control Clerk: None, seen by Dr. Reveles once in 2019
Impression:
Presented with abdominal pain
Chest pain
UTI
Paroxysmal atrial fibrillation
Chronic Eliquis anticoagulation
Elevated troponin, suspected nonischemic myocardial injury
Hypertension
CKD
GERD
Recent admission at 10/25-10/28/23 w/ sepsis due to stercoral colitis
Echo 10/29/2023: EF 62%, MAC, mild MR, aortic sclerosis, normal right heart
Plan:
-She has no cardiac complaints overnight
-Upon review of telemetry remains in and out of atrial fibrillation/atrial flutter with rapid rates
-Continue outpatient Cardizem CD 240 mg daily
-Will add amiodarone 200 mg twice daily
-Follow QTc. Repeat EKG in a.m.
-Continue Eliquis 2.5 mg twice daily
-She initially presented with chest/epigastric pain which occurred in the setting of rapid atrial flutter. Troponin up to 0.487, trend to peak. Suspected nonischemic myocardial injury in the setting of rapid a flutter. Would plan to manage
conservatively given advanced age, comorbidities. Would avoid aspirin in the setting of chronic anemia, ecchymoses on exam, and chronic anticoagulation
-Echo with results as above, EF preserved
-With hypokalemia on arrival status post repletion. Repeat K pending 10/29. Magnesium stable as of 10/28
-Antibiotics per primary service for treatment of colitis and possible UTI
-PT/OT
HPI: Mary Jane is an 87 year old female with PMH of paroxysmal atrial fibrillation, hypertension, CKD, and GERD. She presented to [facility] today for evaluation of 'pain all over' she notes that when she got to ER, she was having pain in her abdomen. She
also noted episode of pain into her chest after she had been in the ER for a while. She was recently admitted at 10/26/2023 to 10/28/2023 with stercoral colitis and was treated with Rocephin and Flagyl. Colorectal surgery saw patient that admission
and plan was to continue abx and use stool softeners as needed. She has history of paroxysmal atrial fibrillation and is maintained on diltiazem for rate control with Eliquis for anticoagulation. She reports she is not followed by a pricing actuary for
this and denies seeing cardiology recently. On arrival to ER, she was in rapid atrial fibrillation with HR in the 140s. She spontaneously converted to SR and remains in SR at this time. Following episode of chest pain, troponin was checked and was
negative. She reports her symptoms have all resolved and she feels well currently.
Progress Note - Credit Card Control Clerk
Subjective
Date of Service: October 30, 2023
Denies chest pain, shortness of breath, palpitations
Objective
Labs:
Labs
Hgb 9.8 g/dL (12.0-16.0) L 10/29/23 08:13
Hct 27.6 % (37.0-47.0) L 10/29/23 08:13
Plt Count 316 10^3/uL (130-400) D 10/29/23 08:13
Sodium 135 mmol/L (135-145) 10/29/23 08:15
Potassium 2.9 mmol/L (3.5-5.1) L 10/29/23 08:15
BUN 15 mg/dl (7-17) 10/29/23 08:15
Creatinine 0.4 mg/dL (0.6-1.0) L 10/29/23 08:15
Glucose 100 mg/dl (70-99) H 10/29/23 08:15
Troponins
10/29/23 10/29/23 10/29/23
07:02 08:13 14:37
Troponin I Cancelled < 0.012 0.340 H* D
10/29/23
20:20
Troponin I 0.487 H* D
Vital Signs and I&O:
Vital Signs
Temp Pulse Resp BP Pulse Ox
97.2 F 82 18 200/114 96
10/30/23 07:11 10/30/23 07:11 10/30/23 03:45 10/30/23 07:11 10/30/23 07:11
Vital Signs
Temp Pulse Resp BP Pulse Ox
97.2 F 82 18 200/114 96
10/30/23 07:11 10/30/23 07:11 10/30/23 03:45 10/30/23 07:11 10/30/23 07:11
Intake & Output
10/28/23 10/29/23 10/30/23 10/31/23
07:59 07:59 07:59 07:59
Intake Total 680 / 680
Balance 680 / 680
Physical Exam
Physical Exam
GEN: No distress, awake, alert, oriented to self, place
HEENT: supple, anicteric, mmm, EOMI
LUNGS: CTA bilaterally, no wheezes/rales
CV: Reg, S1/S2, no murmur
ABD: soft, BS+, NT/ND
EXT: No cyanosis, clubbing. Trace edema of bilateral lower extremity
NEURO: Gross non-focal
SKIN: Warm, pink, dry. No rash. Scattered ecchymoses of bilateral upper and lower extremity. Bandages to lower extremity clean dry and intact
[2023-10-30 09:57] LABS: Hematocrit 30.7 % (37.0-47.0); Hemoglobin 10.6 g/dL (12.0-16.0); Mean Corp Hgb Conc. 34.5 g/dL (33.0-37.0); Mean Corpuscular Volume 101.3 fL (81.0-99.0); Mean Platelet Volume 9.1 fL (7.4-10.4); Platelet Count 389 10^3/uL (130-400); Red Blood Cell Count 3.03 10^6/uL (4.20-5.40); Red Cell Dist. Width 16.5 % (11.5-14.5); White Blood Cell Count 14.3 10^3/uL (4.8-10.8)
[2023-10-30 10:24] LABS: Troponin I 0.246 ng/ml
[2023-10-30 10:40] LABS: Absolute Neutrophils -Man Diff 11.1 10^3/uL (1.4-6.5); Atypical Lymphocytes 3 %; Band Neutrophils 5 % (0-3); Lymphocytes 9 % (20-51); Metamyelocytes 4 % (-); Monocytes 4 % (2-9); Segmented Neutrophils 73 % (42-75)
[2023-10-30 10:41] LABS: Anisocytosis 1+; Hypochromasia 1+; Myelocytes 2 % (-); Normal RBC Morphology No; Platelets Checked Yes; Polychromasia 1+
[2023-10-30 10:42] LABS: Ovalocytes FEW; Total Cells Counted 100
[2023-10-30 10:56] LABS: Blood Urea Nitrogen 12 mg/dl (7-17); Carbon Dioxide 16 mmol/L (22-30); Chloride 108 mmol/L (98-107); Estimated Creatinine Clearance 56 ml/min; Glucose 91 mg/dl (70-99); Potassium 3.4 mmol/L (3.5-5.1); Sodium 136 mmol/L (135-145); eGFR > 60.00
[2023-10-30] MEDS: STERILE WATER FOR INJECTION 10 ML IV (11:06)
[2023-10-30] MEDS: ROCEPHIN 1000 MG IV (11:06)
[2023-10-30] MEDS: PACERONE 200 MG PO ×2 (11:06→20:46)
[2023-10-30 12:02] LABS: Glucose - Point of Care 116 mg/dl (70-99)
--- NOTE | 2023-10-30 12:57 | W.PN.HOSP.TC ---
Addendum entered and electronically signed by Ko Cote MD 10/30/23 13:50:
Essential hypertension
Restart lisinopril, hydralazine
Original Note:
Today's Communication/Plan
-
Monitor vital signs see plan
Switch antibiotics to oral
Continue to monitor with Amio, diltiazem
Replete potassium
Assessment / Plan
Assessment / Plan
General: Well Nourished and No Apparent Distress
HEENT: Anicteric and Moist mucous membranes
Respiratory: Clear and Non Labored Respirations; No Wheezes
Cardiac: Irregular Rhythm and Tachycardia
GI: Soft, Non Tender and Non Distended
Rectal: Deferred by Provider
Genito-urinary: Deferred by me
Musculoskeletal: No Edema
Neuro: Awake
Psych: Calm
Elevated troponin, suspected nonischemic myocardial injury
Likely conservative management given advanced age, comorbidities
Cardiology following
Intermittent atrial flutter, currently on p.o. Cardizem. Amiodarone added
Replete potassium
Echo 10/28 with EF 62%, mild MR, aortic stenosis
History of paroxysmal A-fib/flutter
Continue with Eliquis
Initially UTI was suspected
follow urine cx growing yeast
blood cx pending
Recent admission with colitis
Cefdinir and Flagyl
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
History of CHF, preserved EF
Hold Lasix for now, appears euvolemic
History of lymphocytic colitis
Continue with budesonide, hydroxyurea
Recent admission with stroke or colitis
Continue laxatives
Continue Flagyl
wound (POA) --Stage 1 sacral pressure injury and Stage 1 bilateral heel pressure injuries
underweight BMI
DVT Prophylaxis: SCDs
Code Status: DNR
I discussed in great length with daughter. Patient has been in and out of the hospital and has been declining. Daughter is interested in palliative care.
I spent a total of 52 minutes with the patient or on the floor. More than 50% of this time involved counseling and coordination of care.
Anticipated Discharge: 24 - 48 hours
Subjective/Interval History
-
Date of Service: October 30, 2023
denies pain
Objective Data
-
Labs:
Laboratory Results
10/30/23
09:15
WBC 14.3 H
Hgb 10.6 L
Hct 30.7 L
Plt Count 389 D
Sodium 136
Potassium 3.4 L
Chloride 108 H
Carbon Dioxide 16 L
BUN 12
Creatinine 0.4 L
Glucose 91
Calcium 9.0
Vital Signs:
Vital Signs
Temp Pulse Resp BP Pulse Ox
97.7 F 81 18 170/100 97
10/30/23 12:46 10/30/23 12:46 10/30/23 12:46 10/30/23 12:46 10/30/23 12:46
I&O
10/29/23 10/30/23 10/31/23
06:59 06:59 06:59
Intake Total 680 / 680
Balance 680 / 680
[2023-10-30] MEDS: KCL ELIXIR 40 MEQ PO (13:48)
[2023-10-30] MEDS: VISBIOME 1 CAP PO (13:48)
--- NOTE | 2023-10-30 13:56 | PTCARENOTE ---
Addendum entered by Lizy Dey RN 10/30/23 17:23:
B/P at present 157/80.
Original Note:
Pt with continued elevated b/p's during shift, 200/114, 170/100 and 158/[address] Cote aware. B/P meds ordered and will be given.
[2023-10-30] MEDS: ZESTRIL 20 MG PO (14:08)
[2023-10-30] MEDS: APRESOLINE 25 MG PO ×3 (14:08→20:47)
[2023-10-30] MEDS: FLAGYL 500 MG PO (15:23)
[2023-10-30 18:25] LABS: Troponin I 0.184 ng/ml
[2023-10-30] MEDS: COLACE PO (20:45)
[2023-10-30] MEDS: OMNICEF 300 MG PO (20:46)
[2023-10-31] MEDS: FLAGYL 500 MG PO ×4 (01:02→23:02)
[2023-10-31 03:50] VITALS: BP 132/73
[2023-10-31 05:39] LABS: Hematocrit 25.7 % (37.0-47.0); Hemoglobin 8.8 g/dL (12.0-16.0); Mean Corp Hgb Conc. 34.2 g/dL (33.0-37.0); Mean Corpuscular Hgb 34.8 pg (27.0-31.0); Mean Corpuscular Volume 101.6 fL (81.0-99.0); Mean Platelet Volume 9.1 fL (7.4-10.4); Platelet Count 467 10^3/uL (130-400); Red Blood Cell Count 2.53 10^6/uL (4.20-5.40); Red Cell Dist. Width 16.5 % (11.5-14.5); White Blood Cell Count 11.5 10^3/uL (4.8-10.8)
[2023-10-31 06:00] VITALS: BMI 20.8
[2023-10-31 06:02] LABS: Blood Urea Nitrogen 12 mg/dl (7-17); Calcium 8.8 mg/dl (8.4-10.2); Carbon Dioxide 20 mmol/L (22-30); Chloride 107 mmol/L (98-107); Estimated Creatinine Clearance 56 ml/min; Glucose 136 mg/dl (70-99); Potassium 3.7 mmol/L (3.5-5.1); Sodium 136 mmol/L (135-145); eGFR > 60.00
[2023-10-31 07:00] VITALS: BP 92/64
[2023-10-31 07:50] LABS: Absolute Neutrophils -Man Diff 8.8 10^3/uL (1.4-6.5); Anisocytosis 1+; Band Neutrophils 8 % (0-3); Hypochromasia 1+; Lymphocytes 13 % (20-51); Metamyelocytes 5 % (-); Monocytes 5 % (2-9); Normal RBC Morphology No; Platelets Checked Yes; Polychromasia 1+; Segmented Neutrophils 69 % (42-75)
[2023-10-31 07:51] LABS: Acanthocytes 1+; Total Cells Counted 100
[2023-10-31] MEDS: APRESOLINE 25 MG PO ×3 (08:40→22:08)
[2023-10-31] MEDS: COLACE PO (08:40)
[2023-10-31] MEDS: CARDIZEM CD 240 MG PO (08:40)
[2023-10-31] MEDS: ELIQUIS 2.5 MG PO ×2 (08:41→22:08)
[2023-10-31] MEDS: DESENEX/MITRAZOL/ZEASORB 1 APPLIC TOPICAL ×2 (08:41→22:07)
[2023-10-31] MEDS: OMNICEF 300 MG PO ×2 (08:42→22:09)
[2023-10-31] MEDS: ENTOCORT EC 3 MG PO ×3 (08:42→22:08)
[2023-10-31] MEDS: MIRALAX PO (08:42)
[2023-10-31] MEDS: VISBIOME 1 CAP PO (08:42)
[2023-10-31] MEDS: PACERONE 200 MG PO ×2 (08:42→22:09)
[2023-10-31] MEDS: PEPCID 40 MG PO (08:42)
[2023-10-31] MEDS: KCL 40 MEQ PO (08:43)
[2023-10-31] MEDS: ZESTRIL PO (08:43)
--- NOTE | 2023-10-31 09:18 | W.PN.CARDCBS ---
Today's Communication / Plan
-
P.o. amiodarone
P.o. Cardizem
Will anticoagulation to adjust the dose
Will follow with you while hospitalized
Impression / Plan
-
PCP: Dr. Dasilva
Dermatopathologist: None, seen by Dr. Reveles once in 2019
Impression:
Presented with abdominal pain
Chest pain
UTI
Paroxysmal atrial fibrillation
Chronic Eliquis anticoagulation
Elevated troponin, suspected nonischemic myocardial injury
Hypertension
CKD
GERD
Recent admission at 10/25-10/28/23 w/ sepsis due to stercoral colitis
Echo 10/29/2023: EF 62%, MAC, mild MR, aortic sclerosis, normal right heart
Plan:
-She has no cardiac complaints overnight
-New to amiodarone and she is in sinus rhythm this morning although overnight she did have some episodes of paroxysmal atrial tachycardia�fibrillation. We will follow ECG while hospitalized
-Continue outpatient Cardizem CD 240 mg daily
-Will add amiodarone 200 mg twice daily
-Continue Eliquis 2.5 mg twice daily
-She initially presented with chest/epigastric pain which occurred in the setting of rapid atrial flutter. Troponin up to 0.487, trend to peak. Suspected nonischemic myocardial injury in the setting of rapid a flutter. Would plan to manage
conservatively given advanced age, comorbidities. Would avoid aspirin in the setting of chronic anemia, ecchymoses on exam, and chronic anticoagulation
-Echo with results as above, EF preserved
-With hypokalemia on arrival status post repletion. Replete potassium as needed
-Antibiotics per primary service for treatment of colitis and possible UTI
-PT/OT
HPI: Mary Jane is an 87 year old female with PMH of paroxysmal atrial fibrillation, hypertension, CKD, and GERD. She presented to [facility] today for evaluation of 'pain all over' she notes that when she got to ER, she was having pain in her abdomen. She
also noted episode of pain into her chest after she had been in the ER for a while. She was recently admitted at 10/26/2023 to 10/28/2023 with stercoral colitis and was treated with Rocephin and Flagyl. Colorectal surgery saw patient that admission
and plan was to continue abx and use stool softeners as needed. She has history of paroxysmal atrial fibrillation and is maintained on diltiazem for rate control with Eliquis for anticoagulation. She reports she is not followed by a resilient tile installer for
this and denies seeing cardiology recently. On arrival to ER, she was in rapid atrial fibrillation with HR in the 140s. She spontaneously converted to SR and remains in SR at this time. Following episode of chest pain, troponin was checked and was
negative. She reports her symptoms have all resolved and she feels well currently.
Progress Note - Dermatopathologist
Subjective
Date of Service: October 31, 2023
Feels well
Objective
Labs:
10/31/23 04:30
10/31/23 04:30
Labs
Hgb 8.8 g/dL (12.0-16.0) L 10/31/23 04:30
Hct 25.7 % (37.0-47.0) L 10/31/23 04:30
Plt Count 467 10^3/uL (130-400) H D 10/31/23 04:30
Sodium 136 mmol/L (135-145) 10/31/23 04:30
Potassium 3.7 mmol/L (3.5-5.1) 10/31/23 04:30
BUN 12 mg/dl (7-17) 10/31/23 04:30
Creatinine 0.4 mg/dL (0.6-1.0) L 10/31/23 04:30
Glucose 136 mg/dl (70-99) H 10/31/23 04:30
Troponins
10/29/23 10/29/23 10/29/23
07:02 08:13 14:37
Troponin I Cancelled < 0.012 0.340 H* D
10/29/23 10/30/23 10/30/23
20:20 09:15 17:45
Troponin I 0.487 H* D 0.246 H* 0.184 H*
Vital Signs and I&O:
Vital Signs
Temp Pulse Resp BP Pulse Ox
96.8 F L 77 24 125/81 98
10/31/23 07:00 10/31/23 08:40 10/31/23 07:00 10/31/23 08:40 10/31/23 07:00
Vital Signs
Temp Pulse Resp BP Pulse Ox
96.8 F L 77 24 125/81 98
10/31/23 07:00 10/31/23 08:40 10/31/23 07:00 10/31/23 08:40 10/31/23 07:00
Intake & Output
10/29/23 10/30/23 10/31/23 11/01/23
06:59 06:59 06:59 06:59
Intake Total 680 / 680 270 / 270
Balance 680 / 680 270 / 270
Physical Exam
Physical Exam
Physical Exam
General: no apparent distress, not acutely ill
Neck: supple. no meningeal signs. normal psoterior pharynx
Heart: s1/s2 regular rate and rhythm, no murmur. equal radial pulses.
Lungs: no acute respiratory distress. clear bilaterally
Abdomen: normal bowel sounds. not tender. no CVAT
Neuro: alert and oriented. no focal neurological deficits
Skin: no rash
Psychiatric: well kept. interactive and cooperative
Extremities: no edema. no calf tenderness. negative homans. good distal pulses
[2023-10-31 11:44] VITALS: BP 131/76
--- NOTE | 2023-10-31 11:55 | W.PN.HOSP.TC ---
Today's Communication/Plan
-
monitor vitals
see plan
cw cardizem and amio
cw abx to complete course
called daughter; could not leave voicemail since its full
Assessment / Plan
Assessment / Plan
General: Well Nourished and No Apparent Distress
HEENT: Anicteric and Moist mucous membranes
Respiratory: Clear and Non Labored Respirations; No Wheezes
Cardiac: Irregular Rhythm and Tachycardia
GI: Soft, Non Tender and Non Distended
Musculoskeletal: No Edema
Neuro: Awake
Psych: Calm
Elevated troponin, suspected nonischemic myocardial injury
Likely conservative management given advanced age, comorbidities
Cardiology following
Intermittent atrial flutter, currently on p.o. Cardizem. Amiodarone added. still with periods of aflutter with tachy
Echo 10/28 with EF 62%, mild MR, aortic stenosis
History of paroxysmal A-fib/flutter
Continue with Eliquis
Suspect TME on admission
Now resolved
Initially UTI was suspected
follow urine cx growing yeast
blood cx NGTD
Recent admission with colitis
Cefdinir and Flagyl to complete course
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
History of CHF, preserved EF
Hold Lasix for now, appears euvolemic
History of lymphocytic colitis
Continue with budesonide, hydroxyurea
Recent admission with stroke or colitis
Continue laxatives
Continue Flagyl
wound (POA) --Stage 1 sacral pressure injury and Stage 1 bilateral heel pressure injuries
underweight BMI
DVT Prophylaxis: eliquis
Code Status: DNR
I discussed in great length with daughter. Patient has been in and out of the hospital and has been declining. Daughter is interested in palliative care. likely palliative approach appropriate
Anticipated Discharge: Within 24 hours
Subjective/Interval History
-
Date of Service: October 31, 2023
had some periods of aflutter with RVR this morning
Objective Data
-
Labs:
Laboratory Results
10/31/23
04:30
WBC 11.5 H
Hgb 8.8 L
Hct 25.7 L
Plt Count 467 H D
Sodium 136
Potassium 3.7
Chloride 107
Carbon Dioxide 20 L
BUN 12
Creatinine 0.4 L
Glucose 136 H
Calcium 8.8
Vital Signs:
Vital Signs
Temp Pulse Resp BP Pulse Ox
98.7 F 79 18 131/76 99
10/31/23 11:44 10/31/23 11:44 10/31/23 11:44 10/31/23 11:44 10/31/23 11:44
I&O
10/30/23 10/31/23 11/01/23
06:59 06:59 06:59
Intake Total 680 / 680 270 / 270
Balance 680 / 680 270 / 270
[2023-10-31] MEDS: IMODIUM 2 MG PO (12:03)
[2023-10-31 15:11] VITALS: BP 125/72
[2023-10-31 19:29] VITALS: BP 138/81
[2023-10-31] MEDS: COLACE 100 MG PO (22:05)
[2023-10-31] MEDS: TYLENOL 650 MG PO (22:05)
[2023-10-31 23:27] VITALS: BP 153/78
[2023-11-01] VITALS (7 sets, daily range): BP systolic 116–148; BP diastolic 63–77; PULSE 84; O2SAT 97; BMI 21.1
[2023-11-01 05:19] LABS: % Basophils 0.4 % (0-2); % Immature Granulocytes 17.5 % (0-0.5); % Lymphocytes 13.7 % (20.5-51.1); % Monocytes 4.6 % (1.7-9.3); % Neutrophils 63.8 % (42.2-75.2); Absolute Immature Granulocytes 1.7 10^3/uL (0-0.05); Absolute Lymphocytes 1.3 10^3/uL (1.2-3.4); Absolute Monocytes 0.5 10^3/uL (0.1-0.6); Absolute Neutrophils 6.2 10^3/uL (1.4-6.5); Hemoglobin 8.5 g/dL (12.0-16.0); Mean Corpuscular Hgb 34.6 pg (27.0-31.0); Mean Corpuscular Volume 101.6 fL (81.0-99.0); Mean Platelet Volume 9.4 fL (7.4-10.4); Nucleated Red Blood Cells % 0 %; Platelet Count 514 10^3/uL (130-400); Red Blood Cell Count 2.46 10^6/uL (4.20-5.40); Red Cell Dist. Width 17.2 % (11.5-14.5); White Blood Cell Count 9.8 10^3/uL (4.8-10.8)
[2023-11-01 05:52] LABS: Blood Urea Nitrogen 14 mg/dl (7-17); Calcium 8.7 mg/dl (8.4-10.2); Carbon Dioxide 18 mmol/L (22-30); Chloride 113 mmol/L (98-107); Estimated Creatinine Clearance 56 ml/min; Glucose 116 mg/dl (70-99); Potassium 4.5 mmol/L (3.5-5.1); Sodium 135 mmol/L (135-145); eGFR > 60.00
[2023-11-01] MEDS: CARDIZEM CD 240 MG PO (08:07)
[2023-11-01] MEDS: APRESOLINE 25 MG PO ×3 (08:07→22:26)
[2023-11-01] MEDS: COLACE PO (08:08)
[2023-11-01] MEDS: DESENEX/MITRAZOL/ZEASORB 1 APPLIC TOPICAL ×2 (08:09→20:24)
[2023-11-01] MEDS: ENTOCORT EC 3 MG PO ×3 (08:09→22:26)
[2023-11-01] MEDS: ELIQUIS 2.5 MG PO ×2 (08:09→20:21)
[2023-11-01] MEDS: FLAGYL 500 MG PO ×3 (08:09→23:08)
[2023-11-01] MEDS: HYDREA 500 MG PO (08:12)
[2023-11-01] MEDS: MIRALAX PO (08:12)
[2023-11-01] MEDS: PACERONE 200 MG PO ×2 (08:13→20:22)
[2023-11-01] MEDS: ZESTRIL 20 MG PO (08:13)
[2023-11-01] MEDS: PEPCID 40 MG PO (08:13)
[2023-11-01] MEDS: VISBIOME 1 CAP PO (08:13)
[2023-11-01] MEDS: OMNICEF 300 MG PO ×2 (08:13→20:22)
[2023-11-01 08:29] LABS: Absolute Neutrophils -Man Diff 6.8 10^3/uL (1.4-6.5); Band Neutrophils 4 % (0-3); Lymphocytes 14 % (20-51); Metamyelocytes 3 % (-); Monocytes 10 % (2-9); Myelocytes 3 % (-); Platelets Checked Yes; Segmented Neutrophils 66 % (42-75)
[2023-11-01 08:30] LABS: Anisocytosis Slight; Hypochromasia Slight; Normal RBC Morphology No; Ovalocytes Slight; Polychromasia Slight; Total Cells Counted 100
--- NOTE | 2023-11-01 10:49 | W.PN.HOSP.TC ---
Today's Communication/Plan
-
Hopefully arrhythmias have stabilized
Will increase activity and get PT/OT eval
To guide a discharge plan in next 24 to 48 hours
Complete course of antibiotics through 06 November
Continue amiodarone 200 mg twice a day and diltiazem 240
Assessment / Plan
Assessment / Plan
General: Well Nourished and No Apparent Distress
HEENT: Anicteric and Moist mucous membranes
Respiratory: Clear and Non Labored Respirations; No Wheezes
Cardiac: Regular rhythm/sinus rhythm on monitor
GI: Soft, Non Tender and Non Distended
Musculoskeletal: No Edema
Neuro: Awake
Psych: Calm
Elevated troponin, suspected nonischemic myocardial injury
Likely conservative management given advanced age, comorbidities
Cardiology following
Intermittent atrial flutter, currently on p.o. Cardizem. Amiodarone added. still with periods of aflutter with tachy/but less than remains in sinus rhythm
Echo 10/28 with EF 62%, mild MR, aortic stenosis
History of paroxysmal A-fib/flutter
Continue with Eliquis
Suspect TME on admission
Now resolved
Initially UTI was suspected
follow urine cx growing yeast
blood cx NGTD
Recent admission with colitis
Cefdinir and Flagyl to complete course by November 06
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
History of CHF, preserved EF
Hold Lasix for now, appears euvolemic
History of lymphocytic colitis
Continue with budesonide, hydroxyurea
Recent admission with stroke or colitis
Continue laxatives
Continue Flagyl
wound (POA) --Stage 1 sacral pressure injury and Stage 1 bilateral heel pressure injuries
underweight BMI
DVT Prophylaxis: eliquis
Code Status: DNR
I discussed in great length with daughter. Patient has been in and out of the hospital and has been declining. Daughter is interested in palliative care. likely palliative approach appropriate
Anticipated Discharge: Within 24 hours
Subjective/Interval History
-
Date of Service: November 01, 2023
States she feels better today denies any shortness of breath chest pain has not been up and about as yet sinus rhythm again noted on monitor
Objective Data
-
Labs:
Laboratory Results
11/01/23 11/01/23
04:34 04:35
WBC 9.8
Hgb 8.5 L
Hct 25.0 L
Plt Count 514 H
Sodium 135
Potassium 4.5
Chloride 113 H
Carbon Dioxide 18 L
BUN 14
Creatinine 0.4 L
Glucose 116 H
Calcium 8.7
Vital Signs:
Vital Signs
Temp Pulse Resp BP Pulse Ox
97.6 F 70 18 139/77 99
11/01/23 07:53 11/01/23 07:53 11/01/23 07:53 11/01/23 07:53 11/01/23 08:30
I&O
10/31/23 11/01/23 11/02/23
06:59 06:59 06:59
Intake Total 270 / 270 570 / 570
Balance 270 / 270 570 / 570
Physical Exam
-
General: Well Developed
HEENT: Normocephalic
Respiratory: Clear to Auscultation
Cardiac: Regular Rhythm
Musculoskeletal: No Clubbing
Neuro: Awake, Alert and Oriented
Psych: Calm
Data Reviewed
-
Total Time Spent with Patient (in minutes): 56
Labs: Labs Reviewed by me (Hemoglobin 8.5 white count 9.8/CO2 18 creatinine 0.4 potassium 4.5)
--- NOTE | 2023-11-01 10:57 | W.PN.HOSP.TC ---
Today's Communication/Plan
-
Need to see how she does and PT may not be very motivated and and may need to transition to palliative care options at this point
Cardiac moreno rhythm is stabilized on present medication management
Assessment / Plan
Assessment / Plan
General: Well Nourished and No Apparent Distress
HEENT: Anicteric and Moist mucous membranes
Respiratory: Clear and Non Labored Respirations; No Wheezes
Cardiac: Regular rhythm/sinus rhythm on monitor
GI: Soft, Non Tender and Non Distended
Musculoskeletal: No Edema
Neuro: Awake
Psych: Calm
Elevated troponin, suspected nonischemic myocardial injury
Likely conservative management given advanced age, comorbidities
Cardiology following
Intermittent atrial flutter, currently on p.o. Cardizem. Amiodarone added. still with periods of aflutter with tachy/but less than remains in sinus rhythm
Echo 10/28 with EF 62%, mild MR, aortic stenosis
History of paroxysmal A-fib/flutter
Continue with Eliquis
Suspect TME on admission
Now resolved
Initially UTI was suspected
follow urine cx growing yeast
blood cx NGTD
Recent admission with colitis
Cefdinir and Flagyl to complete course by November 06
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
History of CHF, preserved EF
Hold Lasix for now, appears euvolemic
History of lymphocytic colitis
Continue with budesonide, hydroxyurea
Recent admission with stroke or colitis
Continue laxatives
Continue Flagyl
wound (POA) --Stage 1 sacral pressure injury and Stage 1 bilateral heel pressure injuries
underweight BMI
DVT Prophylaxis: eliquis
Code Status: DNR
I discussed in great length with daughter. Patient has been in and out of the hospital and has been declining. Daughter is interested in palliative care. likely palliative approach appropriate
Anticipated Discharge: Within 24 hours
Subjective/Interval History
-
Date of Service: November 01, 2023
Objective Data
-
Labs:
Laboratory Results
11/01/23 11/01/23
04:34 04:35
WBC 9.8
Hgb 8.5 L
Hct 25.0 L
Plt Count 514 H
Sodium 135
Potassium 4.5
Chloride 113 H
Carbon Dioxide 18 L
BUN 14
Creatinine 0.4 L
Glucose 116 H
Calcium 8.7
Vital Signs:
Vital Signs
Temp Pulse Resp BP Pulse Ox
97.6 F 70 18 139/77 99
11/01/23 07:53 11/01/23 07:53 11/01/23 07:53 11/01/23 07:53 11/01/23 08:30
I&O
10/31/23 11/01/23 11/02/23
06:59 06:59 06:59
Intake Total 270 / 270 570 / 570
Balance 270 / 270 570 / 570
--- NOTE | 2023-11-01 11:50 | W.PN.CARDCBS ---
Addendum entered and electronically signed by Hiram Alejandre DO 11/01/23 13:52:
I saw and examined the patient.
The Clinical Research Monitor's note was reviewed and I agree with the note.
Comment:
Plan:
Continue Amiodarone at 200 mg BID and Cardizem for rate control.
Cont Eliquis.
Lasix X 1 today
Cont supportive care and abx as per primary service.
Outpt cardiac follow up
Original Note:
Today's Communication / Plan
-
Continue Amiodarone 200 mg BID and Cardizem for rate control
Continue Eliquis
Continue antibiotics per primary service
Give IV lasix x 1 today
Impression / Plan
-
PCP: Dr. Dasilva
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 Reveles once in 2019
Impression:
Presented 10/29/23 with abdominal pain
UTI
Paroxysmal atrial fibrillation w/ RVR on admission
Chest pain
Abnormal troponin peak 0.487, suspected nonischemic myocardial injury
Chronic Eliquis anticoagulation
Hypertension
CKD
GERD
Recent admission at 10/25-10/28/23 w/ sepsis due to stercoral colitis
Echo 10/29/2023: EF 62%, MAC, mild MR, aortic sclerosis, normal right heart
Plan:
-She has no cardiac complaints overnight
-New to amiodarone 200 mg twice daily, has gotten 1 gram load. She is in sinus rhythm but has some episodes of paroxysmal atrial tachycardia�fibrillation.
-We will follow ECG while hospitalized, QTc 44 ms on 10/30
-Continue outpatient Cardizem CD 240 mg daily
-Continue Eliquis 2.5 mg twice daily; labile hgb
-She initially presented with chest/epigastric pain which occurred in the setting of rapid atrial flutter. Troponin up to 0.487, trend to peak. Suspected nonischemic myocardial injury in the setting of rapid a fibrillation/flutter. -Would plan to
manage conservatively given advanced age, comorbidities.
-Would avoid aspirin in the setting of chronic anemia, ecchymoses on exam, and chronic anticoagulation
-Echo with results as above, EF preserved
-Weight is up, looks edematous. Will give dose of IV Lasix x 1
-Potassium improved
-Antibiotics per primary service for treatment of colitis and possible UTI. Complete course of antibiotics through 06 November
-PT/OT
Patient previously seen by Dr. Reveles but wants to now follow with [facility] as she is now living in the area
HPI: Mary Jane is an 87 year old female with PMH of paroxysmal atrial fibrillation, hypertension, CKD, and GERD. She presented to [facility] today for evaluation of 'pain all over' she notes that when she got to ER, she was having pain in her abdomen. She
also noted episode of pain into her chest after she had been in the ER for a while. She was recently admitted at 10/26/2023 to 10/28/2023 with stercoral colitis and was treated with Rocephin and Flagyl. Colorectal surgery saw patient that admission
and plan was to continue abx and use stool softeners as needed. She has history of paroxysmal atrial fibrillation and is maintained on diltiazem for rate control with Eliquis for anticoagulation. She reports she is not followed by a livestock nutrition territory manager for
this and denies seeing cardiology recently. On arrival to ER, she was in rapid atrial fibrillation with HR in the 140s. She spontaneously converted to SR and remains in SR at this time. Following episode of chest pain, troponin was checked and was
negative. She reports her symptoms have all resolved and she feels well currently.
Progress Note - Window Installation Subcontractor
Subjective
Date of Service: November 01, 2023
Patient seen and examined. Feeling well denies CP, SOB, palpitations. Eager to work w/ PT/OT
Objective
Labs:
11/01/23 04:35
11/01/23 04:34
Labs
Hgb 8.5 g/dL (12.0-16.0) L 11/01/23 04:35
Hct 25.0 % (37.0-47.0) L 11/01/23 04:35
Plt Count 514 10^3/uL (130-400) H 11/01/23 04:35
Sodium 135 mmol/L (135-145) 11/01/23 04:34
Potassium 4.5 mmol/L (3.5-5.1) 11/01/23 04:34
BUN 14 mg/dl (7-17) 11/01/23 04:34
Creatinine 0.4 mg/dL (0.6-1.0) L 11/01/23 04:34
Glucose 116 mg/dl (70-99) H 11/01/23 04:34
Troponins
10/29/23 10/29/23 10/30/23
14:37 20:20 09:15
Troponin I 0.340 H* D 0.487 H* D 0.246 H*
10/30/23
17:45
Troponin I 0.184 H*
Vital Signs and I&O:
Vital Signs
Temp Pulse Resp BP Pulse Ox
98.4 F 79 18 116/69 99
11/01/23 11:45 11/01/23 11:45 11/01/23 11:45 11/01/23 11:45 11/01/23 11:45
Vital Signs
Temp Pulse Resp BP Pulse Ox
98.4 F 79 18 116/69 99
11/01/23 11:45 11/01/23 11:45 11/01/23 11:45 11/01/23 11:45 11/01/23 11:45
Intake & Output
10/30/23 10/31/23 11/01/23 11/02/23
06:59 06:59 06:59 06:59
Intake Total 680 / 680 270 / 270 570 / 570
Balance 680 / 680 270 / 270 570 / 570
Physical Exam
Physical Exam
GEN: No distress, awake, Ox3
HEENT: supple, anicteric, mmm
LUNGS: CTA, no wheezes/rales
CV: Reg, S1/S2, no murmur, rub or gallops
ABD: soft, BS+, NT/ND
EXT: +1 edema bilateral Rt>Lt, left foot purple
NEURO: Gross non-focal
SKIN: No rash, warm, dry
[2023-11-01] MEDS: LASIX 40 MG IV (12:35)
[2023-11-01] MEDS: TYLENOL 650 MG PO (13:46)
--- NOTE | 2023-11-01 15:49 | CM ---
Patient seen bedside, plan to return to [facility] when stable. CM provided updated to [facility] liaison with discharge for later this week. CM will continue to follow for discharge planning needs.
Plan; return to [facility] when stable.
[2023-11-01] MEDS: TYLENOL 1000 MG PO (20:21)
[2023-11-01] MEDS: COLACE 100 MG PO (20:21)
[2023-11-01] MEDS: LIDOCAINE 4% PATCH 1 PATCH TOPICAL (20:23)
[2023-11-02 03:10] VITALS: BP 127/78
[2023-11-02 05:19] VITALS: BMI 21.0
[2023-11-02 07:42] VITALS: BP 127/73
[2023-11-02] MEDS: MIRALAX PO (09:00)
[2023-11-02] MEDS: COLACE 100 MG PO ×2 (09:00→19:41)
[2023-11-02] MEDS: OMNICEF 300 MG PO ×2 (09:00→19:42)
[2023-11-02] MEDS: CARDIZEM CD 240 MG PO (09:00)
[2023-11-02] MEDS: VISBIOME 1 CAP PO (09:00)
[2023-11-02] MEDS: ENTOCORT EC 3 MG PO ×3 (09:00→22:48)
[2023-11-02] MEDS: DESENEX/MITRAZOL/ZEASORB 1 APPLIC TOPICAL ×2 (09:00→19:47)
[2023-11-02] MEDS: PACERONE 200 MG PO ×2 (09:00→19:40)
[2023-11-02] MEDS: FLAGYL 500 MG PO ×3 (09:00→22:48)
[2023-11-02] MEDS: APRESOLINE 25 MG PO ×3 (09:00→22:48)
[2023-11-02] MEDS: ELIQUIS 2.5 MG PO ×2 (09:00→19:42)
[2023-11-02] MEDS: ZESTRIL 20 MG PO (09:00)
[2023-11-02] MEDS: PEPCID 40 MG PO (09:00)
[2023-11-02] MEDS: HYDROPHOR 1 APPLIC TOPICAL (09:00)
[2023-11-02 09:11] LABS: Blood Urea Nitrogen 17 mg/dl (7-17); Calcium 8.8 mg/dl (8.4-10.2); Carbon Dioxide 22 mmol/L (22-30); Chloride 110 mmol/L (98-107); Estimated Creatinine Clearance 56 ml/min; Glucose 105 mg/dl (70-99); Potassium 3.8 mmol/L (3.5-5.1); Sodium 133 mmol/L (135-145); eGFR > 60.00
--- NOTE | 2023-11-02 09:29 | PN.CDI ---
CDI
- -
CDI:
Physician Documentation Request
Admit Date: 10/29/23 11:59
Dear Doctor Etelvina,
Patient admitted for elevated troponin.
10/31 Hospitalist PN: 'History of CHF, preserved EF. Hold Lasix for now, appears euvolemic'
Please provide further specificity regarding the most likely acuity of CHF you are evaluating, treating or monitoring.
Chronic
Other
Use of terms such as suspected, likely, concern for, or probable (associated with a specific diagnosis that is being evaluated, monitored, or treated as if it exists) are acceptable and can be coded in the inpatient setting, when documented at the
time of discharge.
Thank you,
Loree Iniguez RN, BSN
CDI Specialist
Available via [place] text
Please use your independent medical judgment in providing your response.
--- NOTE | 2023-11-02 09:38 | PN.CDI ---
CDI
- -
CDI:
Physician Documentation Request
Admit Date: 10/29/23 11:59
Dear Doctor Etelvina,
Patient admitted with elevated troponin.
10/28 Wound Care Note: 'stage 2 of sacrum, stage 1 bilateral heels.'
10/31 Hospitalist PN: 'Stage 1 sacral pressure injury and Stage 1 bilateral heel pressure injuries'
Physician documentation of the type and location of wounds is required for compliant documentation. Based on the above clinical findings and your assessment, please clarify the following in your progress note:
1. Location of the ulcer/wound, including laterality.
2. Type (etiology) of ulcer/wound:
- Diabetic ulcer
- Arterial (ischemic) ulcer
- Traumatic wound
- Venous stasis ulcer
- Pressure (decubitus) ulcer
- Non-healing surgical wound
- Other
- Unable to determine
3. For a non-pressure ulcer, please indicate the depth/severity:
- Limited to the breakdown of skin
- With fat layer exposed
- With necrosis of muscle
- With necrosis of bone
- Other
- Unable to determine
4. If a pressure ulcer, please also include the stage* of the ulcer:
- Stage 1 - Skin intact, non-blanchable redness
- Stage 2 - Partial thickness loss of dermis, includes intact or open blister
- Stage 3 - Full thickness tissue not including bone, tendon or muscle
- Stage 4 - Full thickness tissue loss, including exposed bone, tendon or muscle
- Unstageable - Full thickness loss in which the base of the ulcer is covered by slough (yellow, kellogg, valencia, green or brown) and/or eschar (kellogg, brown or black) in the wound bed.
- Unable to determine
Use of terms such as suspected, likely, concern for, or probable (associated with a specific diagnosis that is being evaluated, monitored, or treated as if it exists) are acceptable and can be coded in the inpatient setting, when documented at the
time of discharge.
Thank you,
Loree Iniguez RN, BSN
CDI Specialist
Available via [place] text
Please use your independent medical judgment in providing your response.
*Source: National Pressure Ulcer Advisory Panel (NPUAP)
--- NOTE | 2023-11-02 09:44 | PN.CDI ---
CDI
- -
CDI:
Physician Documentation Request
Admit Date: 10/29/23 11:59
Dear Doctor Etelvina,
10/28 H&P: 'Suspect sepsis (cytosis, tachycardia) secondary to UTI'
Laboratory Tests
10/29/23
08:13
WBC 15.9 H
10/29/23
06:38 10/29/23
07:15 10/29/23
08:15
Pulse 163 134 168
10/29/23
06:38 10/29/23
07:45 10/29/23
09:30
Resp Rate 25 23 21
The diagnosis of sepsis was documented on 10/28, but is not consistently noted in subsequent documentation.
Please clarify the following:
____ - Sepsis was present on admission and is now resolved.
____ - Sepsis was present on admission and is still being monitored, evaluated or treated
____ - Sepsis was ruled out
____ - Sepsis is still a likely, suspected, probable diagnosis
____ - Other
Use of terms such as suspected, likely, concern for, or probable (associated with a specific diagnosis that is being evaluated, monitored, or treated as if it exists) are acceptable and can be coded in the inpatient setting, when documented at the
time of discharge.
Thank you,
Loree Iniguez RN, BSN
CDI Specialist
Available via [place] text
Please use your independent medical judgment in providing your response.
--- NOTE | 2023-11-02 10:22 | W.PN.HOSP.TC ---
Addendum entered and electronically signed by Devaughn Main MD 11/02/23 13:26:
Sepsis present on admission related to UTI now resolved
Stage II sacral pressure ulcer and bilateral heel ulcers also pressure type
Chronic congestive heart failure
Original Note:
Today's Communication/Plan
-
See how she does again with PT I have asked her to try and be a little more motivated today as compared to yesterday to get a true reading what she can do may be looking at palliative care options at this point if she remains poorly well-motivated
and poor performance status
Continue on amiodarone 200 mg twice daily along with diltiazem for rate control continue Eliquis
Assessment / Plan
Assessment / Plan
General: Well Nourished and No Apparent Distress
HEENT: Anicteric and Moist mucous membranes
Respiratory: Clear and Non Labored Respirations; No Wheezes
Cardiac: Regular rhythm/sinus rhythm on monitor
GI: Soft, Non Tender and Non Distended
Musculoskeletal: No Edema
Neuro: Awake
Psych: Calm
Elevated troponin, suspected nonischemic myocardial injury
Likely conservative management given advanced age, comorbidities
Cardiology following
Intermittent atrial flutter, currently on p.o. Cardizem. Amiodarone added. still with periods of aflutter with tachy/but less than remains in sinus rhythm
Echo 10/28 with EF 62%, mild MR, aortic stenosis
History of paroxysmal A-fib/flutter
Continue with Eliquis
Suspect TME on admission
Now resolved
Initially UTI was suspected
follow urine cx growing yeast
blood cx NGTD
Recent admission with colitis
Cefdinir and Flagyl to complete course by November 06
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
History of CHF, preserved EF
Hold Lasix for now, appears euvolemic
History of lymphocytic colitis
Continue with budesonide, hydroxyurea
Recent admission with stroke or colitis
Continue laxatives
Continue Flagyl
wound (POA) --Stage 1 sacral pressure injury and Stage 1 bilateral heel pressure injuries
underweight BMI
DVT Prophylaxis: eliquis
Code Status: DNR
I discussed in great length with daughter. Patient has been in and out of the hospital and has been declining. Daughter is interested in palliative care. likely palliative approach appropriate
Anticipated Discharge: Within 24 hours
Subjective/Interval History
-
Date of Service: November 02, 2023
She is hesitant to pursue any discussions of a discharge plan to [facility] until she shows some more activity and PT cording to caregivers that she really was not that motivated and PT and did not cooperate as well as they would like yesterday
try to encourage her to do so today. She has no other complaints.
Objective Data
-
Labs:
Laboratory Results
11/02/23
07:30
Sodium 133 L
Potassium 3.8
Chloride 110 H
Carbon Dioxide 22
BUN 17
Creatinine 0.5 L
Glucose 105 H
Calcium 8.8
Vital Signs:
Vital Signs
Temp Pulse Resp BP Pulse Ox
97.9 F 65 16 127/73 95
11/02/23 07:42 11/02/23 07:42 11/02/23 07:42 11/02/23 07:42 11/02/23 07:42
I&O
11/01/23 11/02/23 11/03/23
06:59 06:59 06:59
Intake Total 570 / 570 1090 / 1090
Balance 570 / 570 1090 / 1090
Review of Systems
-
All other systems: Not reviewed unless documented
Respiratory: Reports No Symptoms
Cardiac: Reports No Symptoms
Skin: Reports Sores, Skin Thickening and Other (Lower extremities)
Physical Exam
-
General: Appears Chronically Ill
HEENT: Normocephalic
Respiratory: Clear to Auscultation
Cardiac: Irregular Rhythm
GI: Soft, Nontender and Nondistended
Psych: Calm
Data Reviewed
-
Total Time Spent with Patient (in minutes): 56
Labs: Labs Reviewed by me (45)
--- NOTE | 2023-11-02 11:46 | CM ---
Patient seen bedside, plan return to [facility] when stable, patient reports she will need ambulance transport. Per Hospitalist note, may consider palliative options. CM will continue to follow for discharge planning needs.
Plan; return to [facility] when stable, will require ambulance transport.
[2023-11-02 12:07] VITALS: BP 131/84
--- NOTE | 2023-11-02 13:52 | W.PN.CARDCBS ---
Today's Communication / Plan
-
Stable cardiology status
Will sign off
Palliative care being considered
Impression / Plan
-
PCP: Dr. Dasilva
Primary School Teacher Librarian: None, seen by Dr. Reveles once in 2019
Impression:
Presented 10/29/23 with abdominal pain
UTI
Paroxysmal atrial fibrillation w/ RVR on admission
Chest pain
Abnormal troponin peak 0.487, suspected nonischemic myocardial injury
Chronic Eliquis anticoagulation
Hypertension
CKD
GERD
Recent admission at 10/25-10/28/23 w/ sepsis due to stercoral colitis
Echo 10/29/2023: EF 62%, MAC, mild MR, aortic sclerosis, normal right heart
Plan:
Atrial fibrillation is rate controlled on amiodarone and Cardizem
Continue low-dose Eliquis given age and weight
Volume status is difficult but likely euvolemic. She is on room air and not hypoxic
Antibiotics per primary service for treatment of colitis and possible UTI. Complete course of antibiotics through 06 November
Patient previously seen by Dr. Reveles but wants to now follow with [facility] as she is now living in the area
Will sign off, call with questions
HPI: Mary Jane is an 87 year old female with PMH of paroxysmal atrial fibrillation, hypertension, CKD, and GERD. She presented to [facility] today for evaluation of 'pain all over' she notes that when she got to ER, she was having pain in her abdomen. She
also noted episode of pain into her chest after she had been in the ER for a while. She was recently admitted at 10/26/2023 to 10/28/2023 with stercoral colitis and was treated with Rocephin and Flagyl. Colorectal surgery saw patient that admission
and plan was to continue abx and use stool softeners as needed. She has history of paroxysmal atrial fibrillation and is maintained on diltiazem for rate control with Eliquis for anticoagulation. She reports she is not followed by a customer supply coordinator for
this and denies seeing cardiology recently. On arrival to ER, she was in rapid atrial fibrillation with HR in the 140s. She spontaneously converted to SR and remains in SR at this time. Following episode of chest pain, troponin was checked and was
negative. She reports her symptoms have all resolved and she feels well currently.
Progress Note - Primary School Teacher Librarian
Subjective
Date of Service: November 02, 2023
No complaints
Objective
Labs:
11/01/23 04:35
11/02/23 07:30
Labs
Hgb 8.5 g/dL (12.0-16.0) L 11/01/23 04:35
Hct 25.0 % (37.0-47.0) L 11/01/23 04:35
Plt Count 514 10^3/uL (130-400) H 11/01/23 04:35
Sodium 133 mmol/L (135-145) L 11/02/23 07:30
Potassium 3.8 mmol/L (3.5-5.1) 11/02/23 07:30
BUN 17 mg/dl (7-17) 11/02/23 07:30
Creatinine 0.5 mg/dL (0.6-1.0) L 11/02/23 07:30
Glucose 105 mg/dl (70-99) H 11/02/23 07:30
Troponins
10/30/23
17:45
Troponin I 0.184 H*
Vital Signs and I&O:
Vital Signs
Temp Pulse Resp BP Pulse Ox
97.6 F 76 16 131/84 99
11/02/23 12:07 11/02/23 12:07 11/02/23 12:07 11/02/23 12:07 11/02/23 12:07
Vital Signs
Temp Pulse Resp BP Pulse Ox
97.6 F 76 16 131/84 99
11/02/23 12:07 11/02/23 12:07 11/02/23 12:07 11/02/23 12:07 11/02/23 12:07
Intake & Output
10/31/23 11/01/23 11/02/23 11/03/23
06:59 06:59 06:59 06:59
Intake Total 270 / 270 570 / 570 1090 / 1090
Balance 270 / 270 570 / 570 1090 / 1090
Physical Exam
Physical Exam
General: Well developed, well nourished in NAD.
Neck: Supple, no JVD, HJR, carotids +2 B/L, no bruits bilaterally.
Heart: Non displaced PMI, irregular, no murmurs, No S3, S4, no rubs.
Lungs: Scattered rhonchi
Abdomen: Normal bowel sounds, soft, non-tender, non-distended.
Extremities: No clubbing, cyanosis or edema bilaterally.
Neuro: Grossly nonfocal, awake, alert and oriented x3.
[2023-11-02 15:27] VITALS: BP 142/72
[2023-11-02] MEDS: TYLENOL 650 MG PO (16:47)
[2023-11-02 19:44] VITALS: BP 161/107
[2023-11-02] MEDS: LIDOCAINE 4% PATCH 1 PATCH TOPICAL (22:49)
[2023-11-02 23:16] VITALS: BP 128/69
[2023-11-03 03:00] VITALS: BP 144/86
--- NOTE | 2023-11-03 04:45 | DOWNTIME ---
There was a [employer] Downtime on 11/03/2023 from 0100 to 11/03/2023 at 0439. Downtime documentation of patient's care, including medication administrations, has been reconciled in the electronic record per guidelines. Refer to the
patient's paper chart under the miscellaneous tab to see printed paper medication records and downtime forms.
[2023-11-03 04:56] VITALS: BMI 21.1
[2023-11-03] MEDS: COMPAZINE 5 MG IV (06:00)
[2023-11-03] MEDS: CARDIZEM CD 240 MG PO (07:38)
[2023-11-03] MEDS: MIRALAX 17 GRAMS PO (07:38)
[2023-11-03] MEDS: APRESOLINE 25 MG PO ×3 (07:38→22:22)
[2023-11-03] MEDS: OMNICEF 300 MG PO ×2 (07:38→20:11)
[2023-11-03] MEDS: COLACE 100 MG PO ×2 (07:38→20:11)
[2023-11-03] MEDS: PEPCID 40 MG PO (07:39)
[2023-11-03] MEDS: ENTOCORT EC 3 MG PO ×3 (07:39→22:22)
[2023-11-03] MEDS: PACERONE 200 MG PO ×2 (07:39→20:11)
[2023-11-03] MEDS: DRISDOL (VITAMIN D2) 50000 UNITS PO (07:39)
[2023-11-03] MEDS: ZESTRIL 20 MG PO (07:39)
[2023-11-03] MEDS: FLAGYL 500 MG PO (07:40)
[2023-11-03] MEDS: ELIQUIS 2.5 MG PO ×2 (07:40→20:11)
[2023-11-03] MEDS: VISBIOME 1 CAP PO (07:40)
[2023-11-03] MEDS: HYDREA 500 MG PO (07:41)
[2023-11-03] MEDS: DESENEX/MITRAZOL/ZEASORB 1 APPLIC TOPICAL ×2 (07:42→20:12)
[2023-11-03 07:55] VITALS: BP 132/83
--- NOTE | 2023-11-03 09:09 | W.PN.HOSP.TC ---
Today's Communication/Plan
-
She is stable to go to rehab/
Better option for her would be some kind of palliative care setting and I extended care facility at this point
I will discontinue metronidazole given her poor appetite nearing completion of her colitis therapy nonetheless cefdinir can continue until the
Assessment / Plan
Assessment / Plan
General: Well Nourished and No Apparent Distress/weak and deconditioned
HEENT: Anicteric and Moist mucous membranes
Respiratory: Clear and Non Labored Respirations; No Wheezes
Cardiac: Regular rhythm/sinus rhythm on monitor
GI: Soft, Non Tender and Non Distended
Musculoskeletal: No Edema
Neuro: Awake
Psych: Calm
Elevated troponin, suspected nonischemic myocardial injury
Likely conservative management given advanced age, comorbidities
Cardiology following
Intermittent atrial flutter, currently on p.o. Cardizem. Amiodarone added. still with periods of aflutter with tachy/but less than remains in sinus rhythm
Echo 10/28 with EF 62%, mild MR, aortic stenosis
History of paroxysmal A-fib/flutter
Continue with Eliquis
Suspect TME on admission
Now resolved
Initially UTI was suspected
follow urine cx growing yeast
blood cx NGTD
Recent admission with colitis
Cefdinir and Flagyl to complete course by November 06
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
History of CHF, preserved EF
Hold Lasix for now, appears euvolemic
History of lymphocytic colitis
Continue with budesonide, hydroxyurea
Recent admission with stroke or colitis
Continue laxatives
Continue Flagyl
wound (POA) --Stage 1 sacral pressure injury and Stage 1 bilateral heel pressure injuries
underweight BMI
DVT Prophylaxis: eliquis
Code Status: DNR
I discussed in great length with daughter. Patient has been in and out of the hospital and has been declining. Daughter is interested in palliative care. likely palliative approach appropriate
Anticipated Discharge: Today
Subjective/Interval History
-
Date of Service: November 03, 2023
Remains poorly motivated to move and/or even eat not really thriving and did poorly with PT and needs maximal assistance will need rehab
Objective Data
-
Vital Signs:
Vital Signs
Temp Pulse Resp BP Pulse Ox
98.0 F 68 16 132/83 99
11/03/23 07:55 11/03/23 07:55 11/03/23 07:55 11/03/23 07:55 11/03/23 07:55
I&O
11/02/23 11/03/23 11/04/23
06:59 06:59 06:59
Intake Total 1090 / 1090 620 / 620
Balance 1090 / 1090 620 / 620
Review of Systems
-
Unable to obtain full review of systems at this time due to: Dementia
History Source: Patient
Constitutional: Reports No Appetite, Fatigue and Weakness
Psych: Reports Depressed
Physical Exam
-
General: Well Developed
HEENT: Normocephalic
Respiratory: Clear to Auscultation
Cardiac: Regular Rhythm
GI: Soft
Skin: Warm
Psych: Calm and Apparent Dementia
Data Reviewed
-
Total Time Spent with Patient (in minutes): 56
Labs: Labs Reviewed by me
[2023-11-03] MEDS: TYLENOL 650 MG PO (09:57)
[2023-11-03 11:28] VITALS: BP 131/77
--- NOTE | 2023-11-03 11:54 | CM ---
Addendum entered by Cecelia Treadwell 11/03/23 14:40:
CM spoke with patients daughter, discussed plan for discharge tomorrow. Daughter requesting pastoral care to see patient before discharge, TT sent to pastoral care. CM updated Chiara at on plan for discharge tomorrow. Per Chiara, they will set up
palliative care for patient.
Original Note:
CM spoke with Chiara, liaison at [facility], able to accept return of patient. CM spoke with patients daughter, Roya, provided updated. Roya interested in palliative care for patient, would like services for when patient returns. CM
reviewed IMM with Roya, will email to [email or web address]. CM spoke with Chiara at [facility], will inform CM which PAL service [facility] works with. Patient seen bedside, reports she is tired and ready to pass. CM offered emotional support to
patient, will continue to follow for discharge planning needs.
Plan; return to [facility] when stable, pending additional PAL services.
[facility]
Report: [phone]
[2023-11-03 15:25] VITALS: BP 120/65
[2023-11-03] MEDS: ULTRAM 25 MG PO (15:32)
--- NOTE | 2023-11-03 15:56 | CHAP ---
Addendum entered by Misty Kearney 11/04/23 10:53:
Emotional and spiritual support provided for Ms. Billings. Bebeto said.
Original Note:
Request received for Pastoral Care Visit on 11/04/23 prior to discharge. Will be there.
[2023-11-03] MEDS: LIDOCAINE 4% PATCH 1 PATCH TOPICAL (22:22)
[2023-11-03 23:00] VITALS: BP 156/82
[2023-11-04 05:44] VITALS: BMI 21.3
[2023-11-04] MEDS: CARDIZEM CD 240 MG PO (07:29)
[2023-11-04] MEDS: ENTOCORT EC 3 MG PO (07:29)
[2023-11-04] MEDS: ZESTRIL 20 MG PO (07:30)
[2023-11-04] MEDS: OMNICEF 300 MG PO (07:30)
[2023-11-04] MEDS: ELIQUIS 2.5 MG PO (07:31)
[2023-11-04] MEDS: PEPCID 40 MG PO (07:31)
[2023-11-04] MEDS: PACERONE 200 MG PO (07:31)
[2023-11-04] MEDS: APRESOLINE 25 MG PO (07:31)
[2023-11-04] MEDS: VISBIOME 1 CAP PO (07:32)
[2023-11-04] MEDS: COLACE 100 MG PO (07:32)
[2023-11-04] MEDS: MIRALAX 17 GRAMS PO (07:34)
[2023-11-04] MEDS: DESENEX/MITRAZOL/ZEASORB 1 APPLIC TOPICAL (07:34)
[2023-11-04 08:00] VITALS: BP 144/82
--- NOTE | 2023-11-04 09:49 | W.DS.TRANS ---
DC Summary - Biomedical Engineering Technologist
-
Discharge Instructions:
Discharge Diagnosis/Procedures Paroxysmal atrial fibrillation with rapid
ventricular response on admission
Urinary tract infection abnormal troponin peak
suspected in relation to nonischemic myocardial
injury
Chronic pains to the chest back and legs
Recent sterile coral colitis
Chronic Eliquis anticoagulation
Stage II sacral pressure ulcers and bilateral
heel
Failure to thrive and chronic comorbidities are
now debilitating and very poor performance
status
Diet As tolerated
Activity As tolerated
Additional Activity Please consider palliative care transition and
hospice as patient appears appropriate given
poor functional status and chronic issues
recurrent hospitalization
Driving Restrictions No driving
Instructions:
Stand-Alone Forms:
Changes to Home Medications: Yes
Discharge Medications:
DC Medications w/original date entered in [facility]
apixaban 2.5 mg tablet (Eliquis) 2.5 mg PO BID Blood Clot Prevention/Tx 10/25/23
bisacodyl 10 mg rectal suppository 10 mg IL DAILY PRN constipation 10/25/23
budesonide 3 mg capsule,delayed,extended release 3 mg PO TID colitis 10/25/23
carboxymethylcellulose sodium 1 % eye drops 1 drp BOTH EYES Q6HPRN PRN dry eyes 10/25/23
diltiazem HCl 240 mg capsule,24 hr,extended release 240 mg PO DAILY Blood Pressure 10/25/23
ergocalciferol (vitamin D2) 1,250 mcg (50,000 unit) capsule 1,250 mcg PO WE Supplement 10/25/23
famotidine 40 mg tablet 80 mg PO DAILY Gastrointestinal Issue 10/25/23
furosemide 20 mg tablet (Lasix) 20 mg PO DAILY Fluid Retention/Swelling 10/25/23
hydralazine 25 mg tablet 25 mg PO TID Blood Pressure 10/25/23
hydroxyurea 500 mg capsule 500 mg PO MOWEFR Cancer 10/25/23
lisinopril 20 mg tablet 20 mg PO DAILY Blood Pressure 10/25/23
white petrolatum 1 applic topical Q6HPRN PRN dry skin 10/25/23
polyethylene glycol 3350 17 gram oral powder packet (HealthyLax) 17 g PO DAILY #0 ea 10/28/23
acetaminophen 325 mg tablet (Tylenol) 650 mg PO Q6HPRN PRN MILD PAIN 10/29/23
miconazole nitrate 2 % topical powder (Miconazorb AF) 1 applic topical BID GROIN AND BUTTOCKS 10/29/23
neomycin-bacitracn Zn-polymyxn 3.5 mg-400 unit-5,000 unit top oint pkt (Triple Antibiotic) 1 applic topical BID FRONT RIGHT LEG TEAR 10/29/23
amiodarone 200 mg tablet (Pacerone) 200 mg PO BID Heart Failure #30 tabs 11/04/23
lidocaine 4 % topical patch 1 patch topical HS #30 ea 11/04/23
tramadol 50 mg tablet 25 mg (1/2 x 50 mg) PO Q6HPRN PRN leg pain #30 tabs 11/04/23
Home Medication Changes
amiodarone 200 mg tablet (Pacerone) 200 mg PO BID Heart Failure #30 tabs 11/04/23
lidocaine 4 % topical patch 1 patch topical HS #30 ea 11/04/23
tramadol 50 mg tablet 25 mg (1/2 x 50 mg) PO Q6HPRN PRN leg pain #30 tabs 11/04/23
Pending Results: No
--- NOTE | 2023-11-04 10:37 | CM ---
CM emailed IMM to daughter, Vesta. CM spoke with daughter, updated with 12:30 p.m. transport time. Patient seen bedside, shared transport time. TT sent to Pastoral care with discharge time to see if able to see patient before discharge. CM updated
Chiara at [facility] with transport time. CM will continue to follow for discharge planning needs.
Plan; return to [facility] with Palliative Care, 12:30 p.m. ambulance transport.
[facility]
Report: [phone]
--- NOTE | 2023-11-04 12:42 | W.DCSUMMARY ---
Discharge Summary
Discharge Data
Date of Admission: 10/29/23
Date of Discharge: 11/04/23
-
Pending Results: No
Hospital Course
87-year-old female with a past medical history that includes paroxysmal atrial fibrillation hypertension chronic kidney disease and esophageal reflux she presented with a complaint of pain all over from her facility at [facility] she had only
recently undergone taking a admission to this facility 3 days prior to presentation and discharged on the day prior to presentation with treatment for sterile coral colitis with continued Rocephin and Flagyl through 06 November. On this occasion she
presented with a presentation of paroxysmal atrial fibrillation with rapid ventricular response and was immediately placed on rate control with diltiazem drip and admitted and placed on Eliquis anticoagulation which had been on a chronic basis
leading up to this. She spontaneously converted to sinus rhythm and has remained in sinus rhythm throughout the last 6 days of her admission. She was seen by the cardiology service. She was also diagnosed with a infected urine and a urinary tract
infection that turned out to be a yeast infection. Yeast infection possibly in relation to her ongoing course of combined therapy with cefdinir and metronidazole. Blood cultures all proved negative/she continues to manifest a very poor appetite
poor motivation and attempts at activity and physical therapy and discussions were undertaken with patient's family including her daughter who requested a transition to a palliative care option. We also felt that the metronidazole may be offering
some issues with her appetite and that was discontinued and at the time of discharge both antibiotics were discontinued although she had almost completely finished a course of therapy through 06 November on day of discharge. She has chronic pain
throughout including a cyanotic left forefoot and great toe with vascular surgery also evaluating the area and felt no recommendation for surgical option or intervention. She continues to do poorly in physical therapy modalities and her appetite
and is in chronic pain I have prescribed a course of tramadol to try and help with this which may only aggravate her levels of confusion is recommended going forward that failure, care options be pursued toward hospice to avoid further and recurrent
hospitalizations that will not improve her quality of life and only lengthen it
Discharge Plan
-
Patient Disposition: Skilled Nursing/SNF
Discharge Diagnosis/Procedures: Paroxysmal atrial fibrillation with rapid ventricular response on admission
Urinary tract infection abnormal troponin peak suspected in relation to nonischemic myocardial injury
Chronic pains to the chest back and legs
Recent sterile coral colitis
Chronic Eliquis anticoagulation
Stage II sacral pressure ulcers and bilateral heel
Failure to thrive and chronic comorbidities are now debilitating and very poor performance status
Condition: Fair
Diet: As tolerated
Activity: As tolerated
Additional Activity: Please consider palliative care transition and hospice as patient appears appropriate given poor functional status and chronic issues recurrent hospitalization
Driving Restrictions: No driving
Activity Restrictions/Additional Instructions:
Wound Care Instructions LE skin tears- Clean with normal saline or soap and water. Cover with adaptic and silicone border foam. Change Q 72 hour and PRN if loose or soiled.
Stage 2 on sacrum- no-sting barrier and silicone border foam. Change Q 3 days and PRN if loose or soiled.
Stage 1 on [id number] barrier and silicone border foam. Change Q 3 days and PRN if loose or soiled.
Left great toe- Clean with normal saline and apply Betadine daily.
Desenex to fungal appearing rash on groin and buttocks
Air Mattress
Referrals:
Ki Perez MD [Family Provider] -
Gilda Villatoro PA-C [Specified Professional Personl] - 11/25/23 2:00 pm (You have a cardiology follow-up appointment at the [place] office. Please call with questions)
Prescriptions:
New
lidocaine 4 % Adhesive Patch,Medicated
1 patch topical HS Qty: 30 0RF
amiodarone [Pacerone] 200 mg Tablet
200 mg PO BID Qty: 30 0RF
tramadol 50 mg Tablet
25 mg PO Q6HPRN PRN (Reason: leg pain) Qty: 30 0RF
Continued
hydroxyurea 500 mg Capsule
500 mg PO MOWEFR
lisinopril 20 mg Tablet
20 mg PO DAILY
famotidine 40 mg Tablet
80 mg PO DAILY
diltiazem HCl 240 mg Capsule,Extended Release 24 Hr
240 mg PO DAILY
hydralazine 25 mg Tablet
25 mg PO TID
bisacodyl 10 mg Suppository
10 mg LA DAILY PRN (Reason: constipation)
white petrolatum Ointment
1 applic TOPICAL Q6HPRN PRN (Reason: dry skin)
furosemide [Lasix] 20 mg Tablet
20 mg PO DAILY
ergocalciferol (vitamin D2) 1,250 mcg (50,000 unit) Capsule
1,250 mcg PO WE
budesonide 3 mg Capsule,Delayed,Extend.Release
3 mg PO TID
Eliquis 2.5 mg Tablet
2.5 mg PO BID
carboxymethylcellulose sodium 1 % Drops
1 drp BOTH EYES Q6HPRN PRN (Reason: dry eyes)
polyethylene glycol 3350 [HealthyLax] 17 gram Powder In Packet
17 g PO DAILY Qty: 0 0RF
acetaminophen [Tylenol] 325 mg Tablet
650 mg PO Q6HPRN PRN (Reason: MILD PAIN)
Triple Antibiotic 3.5-400-5,000 [id number] Ointment In Packet
1 applic TOPICAL BID
miconazole nitrate [Miconazorb AF] 2 % powder
1 applic topical BID
Discontinued
gabapentin 100 mg Capsule
100 mg PO BID
metronidazole 500 mg tablet
500 mg PO TID
Patient Comments:
TAKE FROM 10/29/23-11/08/23 take for 10 days
cephalexin 500 mg capsule
500 mg PO BID
Patient Comments:
FROM 10/29/23-11/08/23 take for 10 days
Discharge Orders:
Discharge Patient (As Directed); Ordered 11/04/23
Ordered By: Devaughn Main
Discharge Date and Time
Print Language: GEORGIAN
== END 2023-11-04 12:55 | DRG 871 ==
LOC: 4 WEST ACU 11:59
PROVIDERS: Nurse Practitioner Family; ADMITTING PHYSICIAN Internal Medicine; ATTENDING PHYSICIAN Internal Medicine; CONSULT PHYSICIAN Internal Medicine Cardiovascular Disease; EMERGENCY PHYSICIAN Emergency Medicine; FAMILY PHYSICIAN Internal Medicine
DX: A41.9 Sepsis, unspecified organism (principal); G92.8 Other toxic encephalopathy; I48.92 Unspecified atrial flutter; I13.0 Hypertensive heart and chronic kidney disease with heart failure and stage 1 through stage 4 chronic kidney disease, or unspecified chronic kidney disease; I50.32 Chronic diastolic (congestive) heart failure; I5A Non-ischemic myocardial injury (non-traumatic); N39.0 Urinary tract infection, site not specified; K52.89 Other specified noninfective gastroenteritis and colitis; L89.152 Pressure ulcer of sacral region, stage 2; N18.9 Chronic kidney disease, unspecified; I48.0 Paroxysmal atrial fibrillation; Z66 Do not resuscitate; Z79.01 Long term (current) use of anticoagulants; Z86.73 Personal history of transient ischemic attack (TIA), and cerebral infarction without residual deficits
CPT/HCPCS: 71045; 80048; 80053; 81003; 81015; 82962; 83605; 83735; 84484; 85025; 87040; 87045; 87046; 87070; 87086; 87324; 87427; 87449; 87798; 89055; 93005; 93306; 96374; 97163; 99285

== ENCOUNTER 2023-11-21 10:38 | Emergency (ER) | payer MEDICARE, BC, SELFPAY ==
[2023-11-21 10:57] VITALS: BP 118/73
--- NOTE | 2023-11-21 11:10 | ED.GENMED ---
History of Present Illness
General
Chief Complaint: Musculo-Skeletal Complaint
Source: patient, records, [facility] records and previous hospital records
Exam Limitations: none
Time Seen by Provider: 11/21/23 10:46
Nursing documentation reviewed up to this point in time: agreed with
Travel History
Have you had any contact with someone who has COVID-19?: No
Do you have any symptoms of coronavirus? Fever > 100 degrees, chills, cough, shortness of breath, sore throat, loss of taste or smell, muscle aches, or headache?: Yes
Symptoms:: headache
History of Present Illness
History of Present Illness:
87-year-old female from local [facility] presents with pain in her back bilateral hand pain and swelling she is DNR/DNI comfort measures, discharge summary reviewed there is talk of hospice I discussed this with the patient frankly she states she
would like to go onto hospice
Past History
Past History
ED Past Medical History: Arrthythmia, HTN, Hypothyroidism, Other (Sepsis), Other (Dementia) and Other (Chronic kidney disease)
Social History
Tobacco: Non-smoker
Alcohol: None
Drug: None
Living: [facility]
Employment: Not employed
Review of Systems
Review of Systems
All Other Systems: Not applicable
Constitutional: Reports fatigue
Musculoskeletal: Reports joint pain, muscle pain and back pain
Phy Exam
Physical Exam
Physical Exam:
Physical Exam
General: Chronically ill-appearing female
Neck: No jaundice
Lungs: no acute respiratory distress.
Neuro: alert and oriented
Skin: no rash
Psychiatric: Calm
Extremities: Edema diffusely most pronounced on the upper extremities
Course
Orders/Labs/Results
Orders:
Orders
11/21/23 11:04
Morphine Sulfate [Roxanol Oral Concentrate] 5 mg PO NOW STA
11/21/23 11:09
Case Management Consult ONCE
Case Management Consult: Hospice
Hospice: Evaluation and treat
Vital Signs
Initial and Last Documented VS:
Initial Vital Signs
Temp Pulse Resp BP Pulse Ox
97.6 F 71 16 118/73 98
11/21/23 10:57 11/21/23 10:57 11/21/23 10:57 11/21/23 10:57 11/21/23 10:57
Last Documented Vital Signs
Temp Pulse Resp BP Pulse Ox
97.6 F 71 16 118/73 98
11/21/23 10:57 11/21/23 10:57 11/21/23 10:57 11/21/23 10:57 11/21/23 10:57
MDM/Problems Addressed
Differential Diagnosis Includes:
End-of-life care, anasarca, dehydration protein calorie malnutrition
MDM/Problems Addressed:
Back pain hand edema
Chronic conditions affecting care:
Multi
Acute Exacerbation and/or Progression of Chronic Illness:
Multi
*Critical Care Note
Total Time (30-74mins, 75-104mins- exclusive of procedures): Not Applicable
Update Note
Update Note:
Discharge summary reviewed patient's meds directed reviewed will treat with an eye towards comfort case management has been consulted
ED Attending Note
-
Portions of this chart may have been created with voice recognition software.� Occasional wrong word or��sound alike� substitutions may have occurred due to the inherent limitations of voice recognition software.
Discharge Plan
Departure
Patient Disposition: Assisted Living
Date of Disposition: 11/21/23
Time of Disposition: 11:46
Patient with high blood pressure during this ER visit?: No
Condition: Fair
Covid-19: Not Applicable
Discharge Problem:
Hospice care
Instructions: Chronic pain
Prescriptions:
New
morphine concentrate 100 mg/5 mL (20 mg/mL) solution
5 mg PO Q6H PRN (Reason: Pain) Qty: 30 0RF
lorazepam 2 mg/mL concentrate
0.5 mg PO Q6H PRN (Reason: anxiety) Qty: 30 0RF
No Action
hydroxyurea 500 mg Capsule
500 mg PO MOWEFR
lisinopril 20 mg Tablet
20 mg PO DAILY
famotidine 40 mg Tablet
80 mg PO DAILY
diltiazem HCl 240 mg Capsule,Extended Release 24 Hr
240 mg PO DAILY
hydralazine 25 mg Tablet
25 mg PO TID
bisacodyl 10 mg Suppository
10 mg CO DAILYPRN PRN (Reason: constipation)
furosemide [Lasix] 20 mg Tablet
20 mg PO DAILY
ergocalciferol (vitamin D2) 1,250 mcg (50,000 unit) Capsule
1,250 mcg PO WE
budesonide 3 mg Capsule,Delayed,Extend.Release
3 mg PO TID
Eliquis 2.5 mg Tablet
2.5 mg PO BID
carboxymethylcellulose sodium 1 % Drops
1 drp BOTH EYES Q6HPRN PRN (Reason: dry eyes)
polyethylene glycol 3350 [HealthyLax] 17 gram Powder In Packet
17 g PO DAILY Qty: 0 0RF
acetaminophen [Tylenol] 325 mg Tablet
650 mg PO Q6HPRN PRN (Reason: MILD PAIN)
Triple Antibiotic 3.5-400-5,000 [id number] Ointment In Packet
1 applic TOPICAL BID
miconazole nitrate [Miconazorb AF] 2 % powder
1 applic topical BID
lidocaine 4 % adhesive patch,medicated
1 patch topical DAILY
Patient Comments:
11/21/2023: apply to lower back
amiodarone [Pacerone] 200 mg tablet
200 mg PO DAILY
tramadol 50 mg tablet
50 mg PO Q6HPRN PRN (Reason: leg pain)
Referrals:
UNKNOWN - PT DOES,NOT KNOW [Family Provider] -
Interventions
Interventions:
*Risk Screen - Suicide Last Done: 11/21/23 10:45
*General Assessment Last Done: 11/21/23 10:45
*Neglect/Abuse Screening Last Done: 11/21/23 10:45
ED- Fall Risk Assessment Last Done: 11/21/23 10:45
*ED COVID-19 Vaccine History Last Done: 11/21/23 10:45
ED-Musculoskeletal Assessment Last Done: 11/21/23 11:07
Discharge Date and Time
Print Language: TOGOLESE
[2023-11-21] MEDS: ROXANOL ORAL CONCENTRATE 5 MG PO (11:23)
--- NOTE | 2023-11-21 12:30 | CM ---
Addendum entered by Dania Sorenson RN 11/21/23 12:42:
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 CM updated patient's daughter with picker / packer time. Daughter was appreciative.
Original Note:
Patient has been accepted by Hospice. Plan for return back to [facility] and Hospice will meet with patient. CM updated bedside RN and ED physician.
--- NOTE | 2023-11-21 13:37 | HOSPNOTE ---
Referral for Hospice services received. Spoke with the patients daughter. Hospice philosophy and services explained. She has opted for Hospice care. Patient will return to [place] today on Hospice.
[2023-11-21 16:29] VITALS: BP 110/79
== END 2023-11-21 17:26 ==
LOC: EMR 10:38
PROVIDERS: EMERGENCY PHYSICIAN Emergency Medicine
DX: Z51.5 Encounter for palliative care (principal); M79.642 Pain in left hand; M79.641 Pain in right hand; M79.89 Other specified soft tissue disorders; M54.9 Dorsalgia, unspecified; R53.83 Other fatigue; R51.9 Headache, unspecified; R07.89 Other chest pain; R10.9 Unspecified abdominal pain; R60.0 Localized edema; M79.10 Myalgia, unspecified site; I13.0 Hypertensive heart and chronic kidney disease with heart failure and stage 1 through stage 4 chronic kidney disease, or unspecified chronic kidney disease; I50.9 Heart failure, unspecified; N18.9 Chronic kidney disease, unspecified; E03.9 Hypothyroidism, unspecified; F03.90 Unspecified dementia, unspecified severity, without behavioral disturbance, psychotic disturbance, mood disturbance, and anxiety; I48.91 Unspecified atrial fibrillation; K21.9 Gastro-esophageal reflux disease without esophagitis; K52.9 Noninfective gastroenteritis and colitis, unspecified; Z79.01 Long term (current) use of anticoagulants; Z87.01 Personal history of pneumonia (recurrent); Z88.0 Allergy status to penicillin; Z91.041 Radiographic dye allergy status; Z90.49 Acquired absence of other specified parts of digestive tract
CPT/HCPCS: 99283